=== PATIENT | male | born 1965 | race Caucasian/White ===

== ENCOUNTER 2016-11-29 17:23 | Emergency (ER) | payer MEDICARE, OTHER ==
[2016-11-29] MEDS ORDERED: SODIUM CHLORIDE 0.9% 1,000 ML IV STA ×2 (18:04)
[2016-11-29] MEDS ORDERED: IPRATROPIUM-ALBUTEROL 3 ML NEB INHALATION STA (18:04)
[2016-11-29] MEDS ORDERED: methylPREDNISolone SOD SUCCI 125 MG/2 ML VIAL IV STA (18:04)
--- NOTE | 2016-11-29 18:11 | ED ---
SOB HPI - General Chief Complaint: Shortness of Breath Stated Complaint: JAHAIRA Time Seen by Provider: 11/29/16 17:51 Source: patient, RN notes reviewed, old records reviewed Mode of arrival: ambulatory Limitations: no limitations - History of Present Illness Initial Comments: Patient's 51-year-old male chief complaint of shortness of breath for the past 48 hours. Patient reports that he is a heavy smoker and was recently battling a cold. Patient reports that his clothes settled into his chest and now he feels that he is unable take a deep breath whenever he is laying down. Patient states that he has had a productive cough. Patient reports he has a past medical history of borderline diabetes, he has not seen a primary care provider in over 8 years. Patient reports that over the past few months he became very depressed and started to smoke heavily. He also reports that he has chronic arthritic pain which seems to be worse over the past few days. Patient denies any diaphoresis, nausea, vomiting, abdominal pain, malaise. Patient reports that he has had polyuria. Patient denies any recent fever, chills, back pain, abdominal pain, nausea vomiting, numbness or tingling, dysuria or hematuria, constipation or diarrhea, headaches or visual changes, or any other current symptoms - Related Data Home Medications Medication Instructions Recorded Confirmed Cyanocobalamin [Vitamin B-12] 1,000 mcg PO DAILY 11/29/16 11/29/16 Garlic 1 tab PO DAILY 11/29/16 11/29/16 Ibuprofen [Motrin] 200 - 400 mg PO Q6HR PRN 11/29/16 11/29/16 Multivitamins, Thera [Multivitamin] 1 tab PO DAILY 11/29/16 11/29/16 Previous Rx's Medication Instructions Recorded Albuterol Inhaler [Ventolin Hfa 1 - 2 puff INHALATION Q6HR PRN #1 11/29/16 Inhaler] inhaler predniSONE 50 mg PO DAILY #5 tab 11/29/16 Allergies Allergy/AdvReac Type Severity Reaction Status Date / Time venom-honey bee Allergy Unknown Verified 11/29/16 18:53 [bee venom (honey bee)] Review of Systems ROS Statement: Those systems with pertinent positive or pertinent negative responses have been documented in the HPI. ROS Other: All systems not noted in ROS Statement are negative. Past Medical History Past Medical History: No Reported History History of Any Multi-Drug Resistant Organisms: None Reported Past Surgical History: Orthopedic Surgery Additional Past Surgical History / Comment(s): rt ankle Past Psychological History: Depression Smoking Status: Current every day smoker Past Alcohol Use History: Daily General Exam - General Exam Comments Initial Comments: Patient is a 51-year-old male. Patient does appear to be somewhat anxious. Patient does not appear to be in any acute respiratory distress at this time. Patient has no fever and pulse ox is 96% on room air. Limitations: no limitations General appearance: alert, in no apparent distress Head exam: Present: atraumatic, normocephalic, normal inspection Eye exam: Present: normal appearance, PERRL, EOMI. Absent: scleral icterus, conjunctival injection, periorbital swelling ENT exam: Present: normal exam, normal oropharynx, mucous membranes moist, TM's normal bilaterally Neck exam: Present: normal inspection. Absent: tenderness, meningismus, lymphadenopathy Respiratory exam: Present: normal lung sounds bilaterally, wheezes (bilateral wheezing), decreased breath sounds (left sided ). Absent: respiratory distress , rales, rhonchi, stridor, chest wall tenderness Cardiovascular Exam: Present: regular rate, normal rhythm, normal heart sounds. Absent: systolic murmur, diastolic murmur, rubs, gallop, clicks GI/Abdominal exam: Present: soft, normal bowel sounds. Absent: distended, tenderness, guarding, rebound, rigid Extremities exam: Present: normal inspection, full ROM, normal capillary refill. Absent: tenderness, pedal edema, joint swelling, calf tenderness Back exam: Present: normal inspection, full ROM Neurological exam: Present: alert, oriented X3, CN II-XII intact Psychiatric exam: Present: normal affect, normal mood Skin exam: Present: warm, dry, intact, normal color. Absent: rash Course Vital Signs 11/29/16 11/29/16 11/29/16 17:36 18:37 18:40 Temperature 98.4 F Pulse Rate 86 80 80 Respiratory 20 18 Rate Blood Pressure 110/71 130/73 O2 Sat by Pulse 96 99 Oximetry 11/29/16 18:43 Temperature Pulse Rate 84 Respiratory Rate Blood Pressure O2 Sat by Pulse Oximetry Medical Decision Making - Medical Decision Making Patient's 51-year-old male chief complaint of shortness of breath for the past 48 hours. Patient reports that he is a heavy smoker and was recently battling a cold. Patient reports that his clothes settled into his chest and now he feels that he is unable take a deep breath whenever he is laying down. Patient states that he has had a productive cough. Patient reports he has a past medical history of borderline diabetes, he has not seen a primary care provider in over 8 years. Patient reports that over the past few months he became very depressed and started to smoke heavily. X-ray shows no acute cardio vomiting process. There is evidence of previous left rib fractures. Patient reports this happened over 2 years ago he fell in a barrel. Patient was advised that he could be admitted for COPD exacerbation however patient refused. Patient states he would like to manage this at home and promises to follow-up with her primary care provider. Patient will be given referrals to primary care providers and discharged with a prescription of prednisone, and albuterol inhaler. Patient advised that is very important to stop smoking. All labs are reviewed and are essentially negative at this time. Patient's cardiac enzymes and EKG was also reviewed to be normal. Patient understands the importance of following up with primary care and return parameters were discussed any increased shortness of breath.. - Lab Data Result diagrams: 11/29/16 18:30 11/29/16 18:30 Lab Results 11/29/16 11/29/16 11/29/16 Range/Units 18:30 18:30 18:30 WBC 5.8 (3.8-10.6) k/uL RBC 5.17 (4.30-5.90) m/uL Hgb 16.6 (13.0-17.5) gm/dL Hct 49.7 (39.0-53.0) % MCV 96.2 (80.0-100.0) fL MCH 32.1 (25.0-35.0) pg MCHC 33.4 (31.0-37.0) g/dL RDW 13.8 (11.5-15.5) % Plt Count 146 L (150-450) k/uL Neutrophils % 56 % Lymphocytes % 29 % Monocytes % 8 % Eosinophils % 2 % Basophils % 1 % Neutrophils # 3.2 (1.3-7.7) k/uL Lymphocytes # 1.7 (1.0-4.8) k/uL Monocytes # 0.5 (0-1.0) k/uL Eosinophils # 0.1 (0-0.7) k/uL Basophils # 0.1 (0-0.2) k/uL PT (9.0-12.0) sec INR (<1.1) APTT (22.0-30.0) sec Sodium 141 (137-145) mmol/L Potassium 4.5 (3.5-5.1) mmol/L Chloride 107 (98-107) mmol/L Carbon Dioxide 23 (22-30) mmol/L Anion Gap 11 mmol/L BUN 24 H (9-20) mg/dL Creatinine 0.76 (0.66-1.25) mg/dL Est GFR (MDRD) Af Amer >60 (>60 ml/min/1.73 sqM) Est GFR (MDRD) Non-Af >60 (>60 ml/min/1.73 sqM) Glucose 95 (74-99) mg/dL Plasma Lactic Acid Anthony (0.7-2.0) mmol/L Calcium 9.3 (8.4-10.2) mg/dL Magnesium 1.9 (1.6-2.3) mg/dL Total Bilirubin 0.6 (0.2-1.3) mg/dL AST 35 (17-59) U/L ALT 50 (21-72) U/L Alkaline Phosphatase 93 (38-126) U/L Total Creatine Kinase 71 (55-170) U/L CK-MB (CK-2) 0.8 (0.0-2.4) ng/mL CK-MB (CK-2) Rel Index 1.1 Troponin I <0.012 (0.000-0.034) ng/mL NT-Pro-B Natriuret Pep pg/mL Total Protein 6.8 (6.3-8.2) g/dL Albumin 4.0 (3.5-5.0) g/dL Urine Color Urine Appearance (Clear) Urine pH (5.0-8.0) Ur Specific [place] (1.001-1.035) Urine Protein (Negative) Urine Glucose (UA) (Negative) Urine Ketones (Negative) Urine Blood (Negative) Urine Nitrate (Negative) Urine Bilirubin (Negative) Urine Urobilinogen (<2.0) mg/dL Ur Leukocyte Esterase (Negative) 11/29/16 11/29/16 11/29/16 Range/Units 18:30 18:30 18:30 WBC (3.8-10.6) k/uL RBC (4.30-5.90) m/uL Hgb (13.0-17.5) gm/dL Hct (39.0-53.0) % MCV (80.0-100.0) fL MCH (25.0-35.0) pg MCHC (31.0-37.0) g/dL RDW (11.5-15.5) % Plt Count (150-450) k/uL Neutrophils % % Lymphocytes % % Monocytes % % Eosinophils % % Basophils % % Neutrophils # (1.3-7.7) k/uL Lymphocytes # (1.0-4.8) k/uL Monocytes # (0-1.0) k/uL Eosinophils # (0-0.7) k/uL Basophils # (0-0.2) k/uL PT 10.5 (9.0-12.0) sec INR 1.0 (<1.1) APTT 28.6 (22.0-30.0) sec Sodium (137-145) mmol/L Potassium (3.5-5.1) mmol/L Chloride (98-107) mmol/L Carbon Dioxide (22-30) mmol/L Anion Gap mmol/L BUN (9-20) mg/dL Creatinine (0.66-1.25) mg/dL Est GFR (MDRD) Af Amer (>60 ml/min/1.73 sqM) Est GFR (MDRD) Non-Af (>60 ml/min/1.73 sqM) Glucose (74-99) mg/dL Plasma Lactic Acid Anthony 0.7 (0.7-2.0) mmol/L Calcium (8.4-10.2) mg/dL Magnesium (1.6-2.3) mg/dL Total Bilirubin (0.2-1.3) mg/dL AST (17-59) U/L ALT (21-72) U/L Alkaline Phosphatase (38-126) U/L Total Creatine Kinase (55-170) U/L CK-MB (CK-2) (0.0-2.4) ng/mL CK-MB (CK-2) Rel Index Troponin I (0.000-0.034) ng/mL NT-Pro-B Natriuret Pep 37 pg/mL Total Protein (6.3-8.2) g/dL Albumin (3.5-5.0) g/dL Urine Color Urine Appearance (Clear) Urine pH (5.0-8.0) Ur Specific [place] (1.001-1.035) Urine Protein (Negative) Urine Glucose (UA) (Negative) Urine Ketones (Negative) Urine Blood (Negative) Urine Nitrate (Negative) Urine Bilirubin (Negative) Urine Urobilinogen (<2.0) mg/dL Ur Leukocyte Esterase (Negative) 11/29/16 Range/Units 19:50 WBC (3.8-10.6) k/uL RBC (4.30-5.90) m/uL Hgb (13.0-17.5) gm/dL Hct (39.0-53.0) % MCV (80.0-100.0) fL MCH (25.0-35.0) pg MCHC (31.0-37.0) g/dL RDW (11.5-15.5) % Plt Count (150-450) k/uL Neutrophils % % Lymphocytes % % Monocytes % % Eosinophils % % Basophils % % Neutrophils # (1.3-7.7) k/uL Lymphocytes # (1.0-4.8) k/uL Monocytes # (0-1.0) k/uL Eosinophils # (0-0.7) k/uL Basophils # (0-0.2) k/uL PT (9.0-12.0) sec INR (<1.1) APTT (22.0-30.0) sec Sodium (137-145) mmol/L Potassium (3.5-5.1) mmol/L Chloride (98-107) mmol/L Carbon Dioxide (22-30) mmol/L Anion Gap mmol/L BUN (9-20) mg/dL Creatinine (0.66-1.25) mg/dL Est GFR (MDRD) Af Amer (>60 ml/min/1.73 sqM) Est GFR (MDRD) Non-Af (>60 ml/min/1.73 sqM) Glucose (74-99) mg/dL Plasma Lactic Acid Anthony (0.7-2.0) mmol/L Calcium (8.4-10.2) mg/dL Magnesium (1.6-2.3) mg/dL Total Bilirubin (0.2-1.3) mg/dL AST (17-59) U/L ALT (21-72) U/L Alkaline Phosphatase (38-126) U/L Total Creatine Kinase (55-170) U/L CK-MB (CK-2) (0.0-2.4) ng/mL CK-MB (CK-2) Rel Index Troponin I (0.000-0.034) ng/mL NT-Pro-B Natriuret Pep pg/mL Total Protein (6.3-8.2) g/dL Albumin (3.5-5.0) g/dL Urine Color Yellow Urine Appearance Clear (Clear) Urine pH 5.0 (5.0-8.0) Ur Specific [place] 1.020 (1.001-1.035) Urine Protein Trace H (Negative) Urine Glucose (UA) Negative (Negative) Urine Ketones 1+ H (Negative) Urine Blood Negative (Negative) Urine Nitrate Negative (Negative) Urine Bilirubin Negative (Negative) Urine Urobilinogen <2.0 (<2.0) mg/dL Ur Leukocyte Esterase Negative (Negative) 11/29/16 18:29 EKG was performed at 1825. EKG shows normal sinus rhythm. Ventricular rate of 79 bpm. NH interval 144 ms. QRS duration 74 ms. QT/QTC is 354/45 ms. No evidence of ST elevation or T -wave inversion. - Radiology Data Radiology results: report reviewed No active cardiopulmonary disease. Old left-sided multiple rib fracture. There is evidence of normal heart. Slight anterior wedging of 2 or 3 midthoracic vertebra. Disposition Clinical Impression: COPD with exacerbation Disposition: HOME SELF-CARE Condition: Good Instructions: Chronic Bronchitis (ED) Additional Instructions: Mata strongly advised to discontinue smoking. Patient advised to take the steroids for the next 5 days and use the albuterol inhaler as needed for shortness of breath and coughing. Patient must follow-up with her primary care provider in regards to smoking sensation and maintenance treatment for her COPD. Return to the emergency department at once for any alarming signs or symptoms. Prescriptions: Albuterol Inhaler [Ventolin Hfa Inhaler] 1 - 2 puff INHALATION Q6HR PRN #1 inhaler PRN Reason: Shortness Of Breath Or Wheezing predniSONE 50 mg PO DAILY #5 tab Referrals: Katherine Vega MD [REFERRING] - 1-2 days Dimitrios Chavez DO [STAFF PHYSICIAN] - 1-2 days Time of Disposition: 20:22
[2016-11-29 18:40] LABS: Basophils # (A) 0.1 k/uL (0-0.2); Basophils % (A) 1 %; CH 32.6; Eosinophils # (A) 0.1 k/uL (0-0.7); Eosinophils % (A) 2 %; HCT 49.7 % (39.0-53.0); HDW 2.39; HGB 16.6 gm/dL (13.0-17.5); Luc # (Auto) 0.26; Luc % (Auto) 5; Lymphocytes # (A) 1.7 k/uL (1.0-4.8); Lymphocytes % (A) 29 %; MCH 32.1 pg (25.0-35.0); MCHC 33.4 g/dL (31.0-37.0); MCV 96.2 fL (80.0-100.0); Monocytes # (A) 0.5 k/uL (0-1.0); Monocytes % (A) 8 %; Neutrophils # (A) 3.2 k/uL (1.3-7.7); Neutrophils % (A) 56 %; RBC 5.17 m/uL (4.30-5.90); RDW 13.8 % (11.5-15.5); WBC 5.8 k/uL (3.8-10.6); WBC (Perox) 5.35
[2016-11-29 18:41] VITALS: RESP 18
[2016-11-29 18:50] LABS: Partial Thromboplastin Time 28.6 sec (22.0-30.0); Prothrombin Time 10.5 sec (9.0-12.0)
[2016-11-29 18:51] LABS: ALT 50 U/L (21-72); AST 35 U/L (17-59); Alkaline Phosphatase 93 U/L (38-126); Anion Gap 11 mmol/L; Blood Urea Nitrogen 24 mg/dL (9-20); Calcium 9.3 mg/dL (8.4-10.2); Carbon Dioxide 23 mmol/L (22-30); Chloride 107 mmol/L (98-107); Glucose 95 mg/dL (74-99); Magnesium 1.9 mg/dL (1.6-2.3); Non-African American GFR(MDRD) >60 (>60 ml/min/1.73 sqM); Potassium 4.5 mmol/L (3.5-5.1); Sodium 141 mmol/L (137-145); Total Bilirubin 0.6 mg/dL (0.2-1.3); Total Protein 6.8 g/dL (6.3-8.2)
[2016-11-29 19:09] LABS: Creatine Kinase 71 U/L (55-170)
--- NOTE | 2016-11-29 19:17 | XR ---
EXAMINATION TYPE: XR chest 2V DATE OF EXAM: 11/29/2016 7:01 PM COMPARISON: 12/06/2012 HISTORY: Short of breath TECHNIQUE: Frontal and lateral views of the chest are obtained. FINDINGS: Heart and mediastinum are normal. Lungs are clear. Old left-sided healed rib fractures are noted. There are chest leads. There are no hilar masses. There is slight anterior wedging of 2 or 3 mid thoracic vertebra. IMPRESSION: No active cardiopulmonary disease. Old left-sided multiple rib fractures. Normal heart.
[2016-11-29 19:23] LABS: Creatine Kinase MB 0.8 ng/mL (0.0-2.4); Troponin I <0.012 ng/mL (0.000-0.034)
[2016-11-29 19:59] LABS: Appearance,Urine Clear (Clear); Bilirubin,Urine Negative (Negative); Glucose,Urine (UA) Negative (Negative); Ketones,Urine 1+ (Negative); Leukocyte Esterase,Urine Negative (Negative); Nitrite,Urine Negative (Negative); Protein,Urine Trace (Negative); UA Billing (MACRO vs. MICRO) CHEM; Urobilinogen,Urine <2.0 mg/dL (<2.0)
[2016-11-29 20:38] VITALS: BP 122/76; PULSE 95; TEMP 97
== END 2016-11-29 20:38 | disposition home or self-care (01) ==
LOC: EC 17:23
DX: J44.1 Chronic obstructive pulmonary disease with (acute) exacerbation (principal); F17.200 Nicotine dependence, unspecified, uncomplicated
CPT/HCPCS: 36415; 94640; 93005; 83880; 80053; 82550; 82553; 83605; 83735; 84484; 85025; 85610; 85730; 81003; 87040; 71020; 96374; 96361 ×2; 99285; J2930

== ENCOUNTER 2017-05-03 10:59 | Emergency (ER) | payer MEDICARE, OTHER ==
[2017-05-03] MEDS ORDERED: ESOMEPRAZOLE 20 MG in SODIUM CHLORIDE 0.9% 50 ML IVPB STA (11:31)
[2017-05-03] MEDS ORDERED: SODIUM CHLORIDE 0.9% 1,000 ML IV STA (11:31)
--- NOTE | 2017-05-03 12:07 | ED ---
General Adult HPI - General Chief complaint: GI Bleed Stated complaint: rectal bleeding Time Seen by Provider: 05/03/17 11:18 Source: patient, RN notes reviewed Mode of arrival: ambulatory Limitations: no limitations - History of Present Illness Initial comments: Patient 52-year-old male who presents emergency room today with chief complaint of rectal bleeding. Patient does admit that his had symptoms on and off over the last 6 years. He states had diarrhea since he was diagnosed with a "worms" infection. Patient states that he took the medication he just never followed up with anybody. He states continue to have diarrhea. He states that time she' s seeing blood in his stool. He states that last night he had 3-4 episodes of dark bowel movements. He states he at time has had some left-sided abdominal discomfort. denies any other complaints. Patient denies any recent fever, chills, shortness of breath, chest pain, back pain, nausea or vomiting, numbness or tingling, dysuria or hematuria, constipation, headaches or visual changes, or any other complaints. - Related Data Home Medications Medication Instructions Recorded Confirmed Ibuprofen [Motrin] 200 - 400 mg PO Q6HR PRN 11/29/16 05/03/17 Previous Rx's Medication Instructions Recorded Omeprazole 20 mg PO DAILY #20 capsule. 05/03/17 Allergies Allergy/AdvReac Type Severity Reaction Status Date / Time venom-honey bee Allergy Unknown Verified 05/03/17 11:11 [bee venom (honey bee)] Review of Systems ROS Statement: Those systems with pertinent positive or pertinent negative responses have been documented in the HPI. ROS Other: All systems not noted in ROS Statement are negative. Past Medical History Past Medical History: No Reported History History of Any Multi-Drug Resistant Organisms: None Reported Past Surgical History: Orthopedic Surgery Additional Past Surgical History / Comment(s): rt ankle Past Psychological History: Depression Smoking Status: Current every day smoker Past Alcohol Use History: Occasional Past Drug Use History: Marijuana General Exam - General Exam Comments Initial Comments: General: The patient is awake and alert, in no distress, and does not appear acutely ill. Eye: Pupils are equal, round and reactive to light, extra-ocular movements are intact. No nystagmus. There is normal conjunctiva bilaterally. No signs of icterus. Ears, nose, mouth and throat: There are moist mucous membranes and no oral lesions. Neck: The neck is supple, there is no tenderness or JVD. Cardiovascular: There is a regular rate and rhythm. No murmur, rub or gallop is appreciated. Respiratory: Lungs are clear to auscultation, respirations are non-labored, breath sounds are equal. No wheezes, stridor, rales, or rhonchi. Gastrointestinal: Soft, non-distended, non-tender abdomen without masses or organomegaly noted. There is no rebound or guarding present. No CVA tenderness. Bowel sounds are unremarkable. Musculoskeletal: Normal ROM, no tenderness. Strength 5/5. Sensation intact. Pulses equal bilaterally 2+. Neurological: A&O x 3. CN II-XII intact, There are no obvious motor or sensory deficits. Coordination appears grossly intact. Speech is normal. Skin: Skin is warm and dry and no rashes or lesions are noted. Psychiatric: Cooperative, appropriate mood & affect, normal judgment. : [employer] Rocío present for exam. Patient has normal external exam no sign of hemorrhoids. Normal rectal tone. No bright red blood per rectum. Limitations: no limitations Course Vital Signs 05/03/17 11:02 Temperature 97.0 F L Pulse Rate 84 Respiratory 18 Rate Blood Pressure 109/74 O2 Sat by Pulse 97 Oximetry Medical Decision Making - Medical Decision Making Patient labs been reviewed. It is guaiac-positive. Remaining labs are unremarkable. Hemoglobin 16.8. Patient's resting comfortably here in the emergency room. Denies any lightheadedness or dizziness. Abdomen soft nontender. Case discussed in detail with attending physician Dr. Shannon. Patient given Nexium here in the emergency room. He'll be discharged home with continued on omeprazole. Advised follow-up with surgeon tomorrow. Advised return to emergency room symptoms increase worsen or for any other concerns. - Lab Data Result diagrams: 05/03/17 11:44 05/03/17 11:44 Lab Results 05/03/17 05/03/17 05/03/17 Range/Units 11:44 11:44 11:44 WBC 9.3 (3.8-10.6) k/uL RBC 5.28 (4.30-5.90) m/uL Hgb 16.8 (13.0-17.5) gm/dL Hct 51.5 (39.0-53.0) % MCV 97.4 (80.0-100.0) fL MCH 31.9 (25.0-35.0) pg MCHC 32.7 (31.0-37.0) g/dL RDW 14.3 (11.5-15.5) % Plt Count 271 (150-450) k/uL Neutrophils % 55 % Lymphocytes % 35 % Monocytes % 5 % Eosinophils % 2 % Basophils % 1 % Neutrophils # 5.1 (1.3-7.7) k/uL Lymphocytes # 3.3 (1.0-4.8) k/uL Monocytes # 0.4 (0-1.0) k/uL Eosinophils # 0.1 (0-0.7) k/uL Basophils # 0.1 (0-0.2) k/uL PT (9.0-12.0) sec INR (<1.2) APTT (22.0-30.0) sec Sodium 139 (137-145) mmol/L Potassium 4.5 (3.5-5.1) mmol/L Chloride 108 H (98-107) mmol/L Carbon Dioxide 20 L (22-30) mmol/L Anion Gap 11 mmol/L BUN 21 H (9-20) mg/dL Creatinine 0.83 (0.66-1.25) mg/dL Est GFR (MDRD) Af Amer >60 (>60 ml/min/1.73 sqM) Est GFR (MDRD) Non-Af >60 (>60 ml/min/1.73 sqM) Glucose 93 (74-99) mg/dL Calcium 9.5 (8.4-10.2) mg/dL Total Bilirubin 0.6 (0.2-1.3) mg/dL AST 27 (17-59) U/L ALT 45 (21-72) U/L Alkaline Phosphatase 79 (38-126) U/L Total Creatine Kinase 73 (55-170) U/L CK-MB (CK-2) 1.0 (0.0-2.4) ng/mL CK-MB (CK-2) Rel Index 1.4 Total Protein 6.7 (6.3-8.2) g/dL Albumin 4.2 (3.5-5.0) g/dL Stool Occult Blood (Negative) 08/01/17 08/01/17 Range/Units 11:44 12:00 WBC (3.8-10.6) k/uL RBC (4.30-5.90) m/uL Hgb (13.0-17.5) gm/dL Hct (39.0-53.0) % MCV (80.0-100.0) fL MCH (25.0-35.0) pg MCHC (31.0-37.0) g/dL RDW (11.5-15.5) % Plt Count (150-450) k/uL Neutrophils % % Lymphocytes % % Monocytes % % Eosinophils % % Basophils % % Neutrophils # (1.3-7.7) k/uL Lymphocytes # (1.0-4.8) k/uL Monocytes # (0-1.0) k/uL Eosinophils # (0-0.7) k/uL Basophils # (0-0.2) k/uL PT 11.1 (9.0-12.0) sec INR 1.1 (<1.2) APTT 25.8 (22.0-30.0) sec Sodium (137-145) mmol/L Potassium (3.5-5.1) mmol/L Chloride (98-107) mmol/L Carbon Dioxide (22-30) mmol/L Anion Gap mmol/L BUN (9-20) mg/dL Creatinine (0.66-1.25) mg/dL Est GFR (MDRD) Af Amer (>60 ml/min/1.73 sqM) Est GFR (MDRD) Non-Af (>60 ml/min/1.73 sqM) Glucose (74-99) mg/dL Calcium (8.4-10.2) mg/dL Total Bilirubin (0.2-1.3) mg/dL AST (17-59) U/L ALT (21-72) U/L Alkaline Phosphatase (38-126) U/L Total Creatine Kinase (55-170) U/L CK-MB (CK-2) (0.0-2.4) ng/mL CK-MB (CK-2) Rel Index Total Protein (6.3-8.2) g/dL Albumin (3.5-5.0) g/dL Stool Occult Blood Positive (Negative) Disposition Clinical Impression: Melena Disposition: HOME SELF-CARE Condition: Good Instructions: Gastrointestinal Bleeding (ED) Additional Instructions: Please use medication as prescribed. Please follow-up with general surgeon over the next 1-2 days. Please return to emergency room if any symptoms increase or worsen or for any other concerns as discussed. Prescriptions: Omeprazole 20 mg PO DAILY #20 capsule. Referrals: None,Stated [Primary Care Provider] - 1-2 days Monique Terrazas DO [Doctor of Osteopathic Medicine] - 1-2 days Time of Disposition: 13:21
[2017-05-03 12:10] LABS: Basophils # (A) 0.1 k/uL (0-0.2); Basophils % (A) 1 %; CH 32.5; CHCM 33.6; Eosinophils # (A) 0.1 k/uL (0-0.7); Eosinophils % (A) 2 %; HCT 51.5 % (39.0-53.0); HGB 16.8 gm/dL (13.0-17.5); Luc # (Auto) 0.23; Luc % (Auto) 3; Lymphocytes # (A) 3.3 k/uL (1.0-4.8); Lymphocytes % (A) 35 %; MCH 31.9 pg (25.0-35.0); MCHC 32.7 g/dL (31.0-37.0); MCV 97.4 fL (80.0-100.0); Mean Platelet Volume 7.7; Monocytes # (A) 0.4 k/uL (0-1.0); Monocytes % (A) 5 %; Neutrophils # (A) 5.1 k/uL (1.3-7.7); Neutrophils % (A) 55 %; RBC 5.28 m/uL (4.30-5.90); RDW 14.3 % (11.5-15.5); WBC 9.3 k/uL (3.8-10.6); WBC (Perox) 9.19
[2017-05-03 12:18] LABS: ALT 45 U/L (21-72); AST 27 U/L (17-59); Alkaline Phosphatase 79 U/L (38-126); Anion Gap 11 mmol/L; Blood Urea Nitrogen 21 mg/dL (9-20); Calcium 9.5 mg/dL (8.4-10.2); Carbon Dioxide 20 mmol/L (22-30); Chloride 108 mmol/L (98-107); Glucose 93 mg/dL (74-99); Non-African American GFR(MDRD) >60 (>60 ml/min/1.73 sqM); Potassium 4.5 mmol/L (3.5-5.1); Sodium 139 mmol/L (137-145); Total Bilirubin 0.6 mg/dL (0.2-1.3); Total Protein 6.7 g/dL (6.3-8.2)
[2017-05-03 12:35] LABS: INR 1.1 (<1.2); Partial Thromboplastin Time 25.8 sec (22.0-30.0); Prothrombin Time 11.1 sec (9.0-12.0)
[2017-05-03 13:51] VITALS: BP 129/83; PULSE 70; RESP 16; TEMP 97.8
== END 2017-05-03 13:51 | disposition home or self-care (01) ==
LOC: EC 10:59
DX: K92.1 Melena (principal); Z91.030 Bee allergy status; F17.200 Nicotine dependence, unspecified, uncomplicated
CPT/HCPCS: 36415; 80053; 82272; 82550; 82553; 85025; 85610; 85730; 96365; 99284

== ENCOUNTER 2020-03-06 20:52 | Inpatient (IN) | payer MEDICARE, OTHER ==
[2020-03-06] MEDS ORDERED: SODIUM CHLORIDE 0.9% 1,000 ML IV STA (20:55)
[2020-03-06] MEDS ORDERED: ONDANSETRON 4 MG/2 ML VIAL IVP STA (20:57)
[2020-03-06] MEDS ORDERED: HYDROmorphone 1 MG/ML 1 ML SYRINGE IVP STA (20:57)
[2020-03-06] MEDS ORDERED: HYDROmorphone 0.5 MG/0.5 ML SYRINGE IVP STA (21:00)
[2020-03-06] MEDS ORDERED: HYDROmorphone 0.5 MG/0.5 ML SYRINGE IVP PRN (21:01)
[2020-03-06] MEDS ORDERED: ONDANSETRON 4 MG/2 ML VIAL IVP PRN (21:01)
[2020-03-06] MEDS ORDERED: NALOXONE 0.4 MG/ML 1 ML VIAL IV PRN (21:01)
--- NOTE | 2020-03-06 21:05 | ED ---
Chest Pain HPI - General Chief Complaint: Chest Pain Stated Complaint: STEMI Source: patient, EMS Mode of arrival: EMS Limitations: no limitations - History of Present Illness Initial Comments: Jaylan a 55-year-old male smoker who does not follow with a primary care physician. Patient called 911 today for evaluation of severe chest pain and shortness of breath. EMS arrived on scene to find the patient with severe chest pain EKG showed an inferior wall OK patient was treated with aspirin and nitro and transported the hospital immediately. Patient has no known cardiac history though he does not follow with primary care physician he takes no meds daily. MD Complaint: chest pain - Related Data Home Medications Medication Instructions Recorded Confirmed Ibuprofen [Motrin] 200 - 400 mg PO Q6HR PRN 11/29/16 05/03/17 Previous Rx's Medication Instructions Recorded Omeprazole 20 mg PO DAILY #20 capsule. 05/03/17 Allergies Allergy/AdvReac Type Severity Reaction Status Date / Time venom-honey bee Allergy Unknown Verified 05/03/17 11:11 [bee venom (honey bee)] Review of Systems ROS Statement: Those systems with pertinent positive or pertinent negative responses have been documented in the HPI. ROS Other: All systems not noted in ROS Statement are negative. EKG Findings - EKG Comments: EKG Findings:: EKG was obtained at 2055,, rate is in the 60s rhythm is sinus normal axis, normal intervals, UT 138, QRS 88, QTC is 427. There are ST elevations in 23 and aVF with reciprocal changes consistent with an acute inferior wall OK Past Medical History Past Medical History: No Reported History History of Any Multi-Drug Resistant Organisms: None Reported Past Surgical History: Orthopedic Surgery Additional Past Surgical History / Comment(s): rt ankle Past Psychological History: Depression Smoking Status: Current every day smoker Past Alcohol Use History: Occasional Past Drug Use History: Marijuana General Exam - General Exam Comments Initial Comments: Physical Exam GENERAL: Gentleman who appears quite uncomfortable, grayish skin discoloration HENT: Normocephalic, Atraumatic. EYES: PERRL, EOMI PULMONARY: Unlabored respirations. No audible rales rhonchi or wheezing was noted. CARDIOVASCULAR: There is a regular rate and rhythm without any murmurs gallops or rubs. A maneuver warm and well perfused with palpable radial and DP pulses ABDOMEN: Soft and nontender with normal bowel sounds. No pulsatile mass SKIN: Skin is clear with no lesions or rashes and otherwise unremarkable. : Deferred NEUROLOGIC: Patient is alert and oriented x3. Moving all extremities spontaneously MUSCULOSKELETAL: Normal extremities with adequate strength and full range of motion. No lower extremity swelling or edema. No calf tenderness. PSYCHIATRIC: Normal psychiatric evaluation. Limitations: no limitations Course Vital Signs 03/06/20 20:53 Temperature 97.8 F Pulse Rate 67 Respiratory 18 Rate Blood Pressure 110/84 O2 Sat by Pulse 98 Oximetry Chest Pain MDM - [facility] EKG was evaluated prior to arrival and cardiology was paged Repeat EKG was obtained upon arrival and STEMI was activated Patient received aspirin and nitro prior to arrival Heparin Dilaudid and Zofran were ordered Team at Bedside to Transfer Patient to the Cardiac Progressive Care Nurse with Dr. Rao, of [facility] was notified of admission Disposition Clinical Impression: STEMI (ST elevation myocardial infarction) Disposition: ADMITTED IP TO THIS HOSP Condition: Serious Is patient prescribed a controlled substance at d/c from ED?: No Referrals: None,Stated [Primary Care Provider] - 1-2 days
[2020-03-06] MEDS ORDERED: HEPARIN SODIUM,PORCINE 5,000 UNIT/ML 1 ML VIAL IV PRN (21:06)
[2020-03-06] MEDS ORDERED: HEPARIN SODIUM,PORCINE 5,000 UNIT/ML 1 ML VIAL IV ONE (21:06)
--- NOTE | 2020-03-06 21:08 | XR ---
EXAMINATION: XR chest 1V - upright portable DATE AND TIME: 03/06/2020 9:01 PM CLINICAL INDICATION: PHH; chest pain TECHNIQUE: Departmental protocol COMPARISON: 11/22/1716 FINDINGS: Senescent radiographic changes are redemonstrated. The lungs demonstrate a reticular pattern of increased density silhouetting the pulmonary vasculature to a mild/moderate degree, consistent with a radiographic differential diagnosis of mild interstitia l phase pulmonary edema versus chronic interstitial lung change. There is no focal lung consolidation . There is no evidence of pneumothorax, and no pleural effusion. The cardiac silhouette appears mildly enlarged. The remainder of the mediastinal silhouette is unremarkable. The skeletal structures and soft tissues are negative for acute findings. IMPRESSION: Mild/moderate pulmonary interstitial pattern.
[2020-03-06 21:12] LABS: Basophils # (A) 0.1 k/uL (0-0.2); Basophils % (A) 1 %; Eosinophils # (A) 0.3 k/uL (0-0.7); Eosinophils % (A) 3 %; HCT 48.4 % (39.0-53.0); HGB 15.2 gm/dL (13.0-17.5); Lymphocytes # (A) 4.6 k/uL (1.0-4.8); Lymphocytes % (A) 35 %; MCH 30.8 pg (25.0-35.0); MCHC 31.5 g/dL (31.0-37.0); Mean Platelet Volume 7.5; Monocytes # (A) 0.7 k/uL (0-1.0); Monocytes % (A) 5 %; Neutrophils % (A) 54 %; Platelet Count 268 k/uL (150-450); RBC 4.94 m/uL (4.30-5.90); RDW 13.8 % (11.5-15.5)
[2020-03-06 21:25] LABS: Partial Thromboplastin Time 22.6 sec (22.0-30.0)
[2020-03-06 21:33] LABS: Albumin 4.1 g/dL (3.5-5.0); Calcium 9.6 mg/dL (8.4-10.2); Total Bilirubin 0.5 mg/dL (0.2-1.3); Total Protein 6.6 g/dL (6.3-8.2)
[2020-03-06 21:34] LABS: Potassium 4.3 mmol/L (3.5-5.1)
[2020-03-06] MEDS ORDERED: IV FLUID CONTINUATION 900 ML IV ONE (21:34)
[2020-03-06] MEDS ORDERED: LIDOCAINE 1% INJ 10MG/ML (20 ML MDV) SQ ONE (21:40)
[2020-03-06] MEDS ORDERED: MIDAZOLAM 2 MG/2 ML VIAL IVP ONE (21:40)
[2020-03-06] MEDS ORDERED: HEPARIN SOD,PORK IN 0.45% NACL 25,000 UNIT in 0.45% NACL 1 250ML.BAG IV SCH (21:45)
[2020-03-06] MEDS ORDERED: BIVALIRUDIN BOLUS 250 MG/50 ML IV ONE (21:46)
[2020-03-06] MEDS ORDERED: PRASUGREL 10 MG TAB ONE ×2 (21:47)
[2020-03-06] MEDS ORDERED: BIVALIRUDIN 250 MG in SODIUM CHLORIDE 0.9% 50 ML IV ONE (21:48)
[2020-03-06] MEDS ORDERED: PRASUGREL 10 MG TAB PO ONE (21:48)
[2020-03-06] MEDS ORDERED: IOPAMIDOL-370 125ML BTL INJ ONE (22:15)
[2020-03-06] MEDS ORDERED: ATROPINE SULFATE 0.1 MG/ML 10ML SYRINGE IV PRN (22:26)
[2020-03-06] MEDS ORDERED: NITROGLYCERIN SL TABS 0.4 MG TAB SUBLINGUAL PRN (22:26)
[2020-03-06] MEDS ORDERED: ZOLPIDEM 5 MG TAB PO PRN (22:26)
[2020-03-06] MEDS ORDERED: MAG HYDROX/AL HYDROX/SIMETH 30 ML CUP PO PRN (22:26)
[2020-03-06] MEDS ORDERED: RX INFO: IV CONTRAST WAS GIVEN 1 EACH MISC MISCELLANE PRN (22:26)
[2020-03-06] MEDS ORDERED: SODIUM CHLORIDE 0.9% 1,000 ML IV SCH (22:30)
--- NOTE | 2020-03-06 22:32 | P.CRDCN ---
History of Present Illness Consult date: 03/06/20 Chief complaint: Chest pain History of present illness: This is a 55-year-old gentleman with very significant history of smoking but no other comorbidities like diabetes or hypertension or dyslipidemia was brought to the emergency department by ambulance with acute inferior ST elevation myocardial infarction. The patient was in his usual state of health until earlier today when he started experiencing chest discomfort, in the mid of the chest, as a pressure, associated with shortness of breath as sweating. EMS arrived on scene and the patient was in severe pain and the EKG showed acute inferior ST patient myocardial infarction. Subsequently the patient was transported immediately to the emergency department and an emergent heart cat heterization was performed and revealed acute total occlusion of the RCA in the midportion with intermediate to severe disease involving the RCA distally as well as intermediate to severe disease involving the proximal LAD. I did perform successful aspiration thrombectomy along with successful stenting of the RCA with an excellent angiographic results as was GERMÁN-3 flow with the patient being chest pain-free by the end of the procedure as well as with resolving ST changes. The procedure was performed from the right groin. The patient is going to be admitted to the intensive care unit. I am going to start the patient on dual antiplatelet therapy as well as a statin. I'll withhold beta bl ocker as well as FEDERICA inhibitor at this point in view of the margin the low blood pressure. We will reinitiate these medication once her pressure is better. Past Medical History Past Medical History: No Reported History History of Any Multi-Drug Resistant Organisms: None Reported Past Surgical History: Orthopedic Surgery Additional Past Surgical History / Comment(s): rt ankle Past Psychological History: Depression Smoking Status: Current every day smoker Past Alcohol Use History: Occasional Past Drug Use History: Marijuana Medications and Allergies Home Medications Medication Instructions Recorded Confirmed Type Ibuprofen [Motrin] 200 - 400 mg PO Q6HR PRN 11/29/16 05/03/17 History Omeprazole 20 mg PO DAILY #20 capsule. 05/03/17 Rx Allergies Allergy/AdvReac Type Severity Reaction Status Date / Time venom-honey bee Allergy Unknown Verified 05/03/17 11:11 [bee venom (honey bee)] Physical Exam Vitals: Vital Signs Temp Pulse Resp BP Pulse Ox 03/06/20 21:42 68 18 119/78 98 03/06/20 21:15 65 17 110/79 99 03/06/20 20:53 97.8 F 67 18 110/84 98 Intake and Output 03/06/20 03/06/20 03/06/20 06:59 14:59 22:59 Intake Total 525 Balance 525 Intake: IV 525 Other: Weight 77.111 kg - Constitutional General appearance: no acute distress - Respiratory Respiratory: bilateral: CTA - Cardiovascular Rhythm: regular Results 03/06/20 21:00 03/06/20 21:00 Cardiac Enzymes 03/06/20 03/06/20 Range/Units 21:00 21:00 AST 30 (17-59) U/L Troponin I <0.012 (0.000-0.034) ng/mL Coagulation 03/06/20 Range/Units 21:00 PT 10.0 (9.0-12.0) sec APTT 22.6 (22.0-30.0) sec CBC 03/06/20 Range/Units 21:00 WBC 13.0 H (3.8-10.6) k/uL RBC 4.94 (4.30-5.90) m/uL Hgb 15.2 (13.0-17.5) gm/dL Hct 48.4 (39.0-53.0) % Plt Count 268 (150-450) k/uL Comprehensive Metabolic Panel 03/06/20 Range/Units 21:00 Sodium 142 (137-145) mmol/L Potassium 4.3 (3.5-5.1) mmol/L Chloride 111 H (98-107) mmol/L Carbon Dioxide 22 (22-30) mmol/L BUN 23 H (9-20) mg/dL Creatinine 1.12 (0.66-1.25) mg/dL Glucose 119 H (74-99) mg/dL Calcium 9.6 (8.4-10.2) mg/dL AST 30 (17-59) U/L ALT 21 (4-49) U/L Alkaline Phosphatase 71 (38-126) U/L Total Protein 6.6 (6.3-8.2) g/dL Albumin 4.1 (3.5-5.0) g/dL Current Medications Generic Name Dose Route Start Last Admin Trade Name Freq PRN Reason Stop Dose Admin Al Hydroxide/Mg Hydroxide 30 ml 03/06/20 22:26 Maalox PO Q4HR PRN Heartburn Aspirin 325 mg 03/07/20 09:00 Aspirin PO DAILY [facility] Atorvastatin Calcium 80 mg 03/07/20 21:00 Lipitor PO HS [facility] Atropine Sulfate 0.5 mg 03/06/20 22:26 Atropine IV ONCE PRN Symptomatic Bradycardia Hydromorphone HCl 0.5 mg 03/06/20 21:01 Dilaudid IVP Q3HR PRN Moderate Pain Sodium Chloride 1,000 mls @ 100 mls/hr 03/06/20 22:30 Saline 0.9% IV 03/07/20 04:31 .Q10H [facility] Miscellaneous Information 1 each 03/06/20 22:26 Rx Info: Iv Contrast Was Given MISCELLANE 03/08/20 22:26 DAILY PRN Per Protocol Naloxone HCl 0.2 mg 03/06/20 21:01 Narcan IV Q2M PRN Opioid Reversal Nitroglycerin 0.4 mg 03/06/20 22:26 Nitrostat SUBLINGUAL Q5M PRN Chest Pain Ondansetron HCl 4 mg 03/06/20 21:01 Zofran IVP Q8HR PRN Nausea And Vomiting Prasugrel 10 mg 03/07/20 22:27 Effient PO DAILY [facility] Zolpidem Tartrate 5 mg 03/06/20 22:26 Ambien PO HS PRN Insomnia Intake and Output 03/06/20 03/06/20 03/06/20 06:59 14:59 22:59 Intake Total 525 Balance 525 Intake: IV 525 Other: Weight 77.111 kg Patient Weight 03/07/20 06:59 Weight 77.111 kg 03/06/20 21:00 03/06/20 21:00 Assessment and Plan Assessment: Assessment #[address] patient myocardial infarction #2 status post PCI of the RCA #3 intermediate to severe disease involving the LAD #4 significant history of smoking Plan #1 continue dual antiplatelet therapy #2 continue high intensity statin #3 hold the beta huber and FEDERICA inhibitor in view of the margin the low blood pressure #4 IV fluid to support the blood pressure. #5 an echocardiogram was Doppler #6 monitor the groin Thank you for allowing us participate in his care and we'll continue following u p with the patient
[2020-03-06 22:44] LABS: Glucose,Whole Blood 101 mg/dL (75-99)
--- NOTE | 2020-03-07 00:09 | CC ---
CARDIAC CATHETERIZATION REPORT CARDIAC CATHETERIZATION AND PERCUTANEOUS CORONARY INTERVENTION: DATE OF SERVICE: March 06, 2020 PERFORMING PHYSICIAN: Allan Ledezma MD. PROCEDURE PERFORMED: 1. Selective right and left coronary angiogram. 2. Aspiration thrombectomy from the right coronary artery. 3. Successful stenting of the mid right coronary artery using 3.25 x 23 mm Xience ANA with excellent angiographic results and reduction of stenosis from 100% to 0%. 4. Left heart catheterization. INDICATION: This is a 55-year-old gentleman with significant history of smoking who was brought by ambulance from home with chest discomfort and EKG finding consistent with acute inferior ST-elevation myocardial infarction. Because of that, an emergent heart catheterization was advised. APPROACH: Right common femoral artery. COMPLICATION: None. LEVEL OF SEDATION: Moderate with sedation length of 40 minutes. Door to balloon is 59 minutes. 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 The right common femoral artery was cannulated using micropuncture technique, the micropuncture wire passed easily then I placed a 6-Polish sheath at the right common femoral artery. Subsequently, I did selective right and left coronary angiogram using JR3.5 and JL3.5 catheters. Subsequently I did intervene on the right coronary artery. Please see a separate paragraph for that. Then I did left heart catheterization using 6-Polish pigtail catheter. The procedure was completed without any complication. SELECTIVE CORONARY ANGIOGRAM: 1. The right coronary artery is a large caliber vessel and it is a dominant vessel. The RCA is 100% occluded in the midportion. 2. The left main is angiographically normal. It bifurcates into LCX and LAD. 3. The LCX is a medium caliber vessel. It is a nondominant vessel. The proximal LCX appeared to have mild disease only and gives rise into the first and second obtuse marginal branches both appeared to be small to medium caliber vessel with mild diffuse disease. The left circumflex continued after that as a small to medium caliber vessel in the AV groove. 4. The LAD: The proximal LAD has an ulcerated lesion appeared to be in the range of 60% to 70%. The mid and distal LAD appeared to be angiographically normal. The LAD gives rise into multiple diagonal branches. They appear to be angiographically normal. HEMODYNAMICS: The LVEDP was 18 to 20 mmHg without significant gradient across aortic valve. PCI OF THE RCA: Anticoagulation was initiated using Angiomax. Subsequently I did engage the right coronary artery using JR3.5 guide. I did wire the RCA and cross the acute total occlusion using an 0.014 run-through wire. Subsequently, I did aspiration thrombectomy from the right coronary artery with extraction of red thrombus. After that, I did balloon angioplasty using 3.0 x 15 mm balloon before I deployed 3.25 x 23 mm Xience ANA where the stent was positioned under fluoroscopy guidance and deployed under 18 atmospheres for 20 seconds. I post dilated the stent initially using 3.5 and then 3.75 mm NC balloon which was inflated under 20 atmospheres for 20 seconds. The following angiogram showed excellent angiographic results and the procedure was completed without any complication. Please note that there was a lesion distal to the stent appeared to be in the range of 60% to 70%. which I decided to treat medically. CONCLUSION: 1. Acute inferior ST-elevation myocardial infarction in this 55-year-old gentleman with significant history of smoking. 2. Acute total occlusion of the mid right coronary artery. I performed successful stenting of the mid RCA. The patient does have intermediate to severe lesion involving the distal RCA treated medically. 3. Normal left main coronary artery. 4. Mild disease involving the left circumflex coronary system. 5. Intermediate to severe disease involving the proximal left anterior descending artery. POSTPROCEDURE MANAGEMENT: 1. Dual anti-platelet therapy. 2. High intensity statin. 3. Hold any beta huber or FEDERICA inhibitor at this point in view of the marginally low blood pressure. 4. An echocardiogram with Doppler. 5. Standard groin care. 6. Follow up with the patient. MMODL / IJN: [id number] /
[2020-03-07 03:30] LABS: Basophils % (A) 0 %; Eosinophils % (A) 0 %; HCT 44.2 % (39.0-53.0); HGB 14.6 gm/dL (13.0-17.5); Lymphocytes # (A) 2.3 k/uL (1.0-4.8); Lymphocytes % (A) 19 %; MCH 32.6 pg (25.0-35.0); MCHC 33.1 g/dL (31.0-37.0); MCV 98.6 fL (80.0-100.0); Mean Platelet Volume 7.4; Monocytes # (A) 0.5 k/uL (0-1.0); Monocytes % (A) 4 %; Neutrophils % (A) 76 %; Platelet Count 207 k/uL (150-450); RBC 4.49 m/uL (4.30-5.90); RDW 13.8 % (11.5-15.5); WBC 11.9 k/uL (3.8-10.6)
[2020-03-07 03:42] LABS: African American GFR (CKD) >90 (>60 ml/min/1.73 sqM); Anion Gap 7 mmol/L; Blood Urea Nitrogen 21 mg/dL (9-20); Calcium 8.9 mg/dL (8.4-10.2); Carbon Dioxide 21 mmol/L (22-30); Chloride 110 mmol/L (98-107); Glucose 113 mg/dL (74-99); Non-African American GFR(CKD) >90 (>60 ml/min/1.73 sqM); Potassium 4.7 mmol/L (3.5-5.1); Sodium 138 mmol/L (137-145)
--- NOTE | 2020-03-07 07:37 | P.PN ---
Subjective Progress Note Date: 03/07/20 Principal diagnosis: Acute inferior ST elevation myocardial infarction This is a very pleasant 55-year-old gentleman with significant history of smoking was brought by ambulance to the emergency department with acute inferior ST elevation myocardial infarction. An emergent heart catheterization was performed and revealed acute total occlusion of the RCA in the midportion with a large thrombus burden with mild to moderate disease involving the left coronary system. The patient underwent an aspiration thrombectomy along with successful stenting of the RCA and reduction of stenosis from 100% to 0%. He still have intermediate to severe disease involving the RCA in the distal portion distal to the stent was placed yesterday. I decided to treat that medically. He was seen today, March [id number]. He is asymptomatic from the cardiac standpoint of view. No chest pain or chest discomfort, shortness of breath, dizziness or feeling of heart racing or fluttering. The right groin is soft and nontender and without any bruises. He is slightly hypotensive which is likely related to right ventricular ischemia. His systolic blood pressure has been in the upper 80s and 90s. I would continue holding any beta huber or FEDERICA inhibitor at this point. He is on dual antiplatelet therapy along with high intensity statin. An echocardiogram was performed and we will follow-up on it. We will continue watch the patient here in the ICU for additional 24 hours. Objective - Vital Signs Vital signs: Vital Signs Temp 98.4 F 03/07/20 03:30 Pulse 92 03/07/20 07:00 Resp 18 03/07/20 07:00 BP 98/72 03/07/20 07:00 Pulse Ox 97 03/07/20 07:00 Intake & Output 03/06/20 03/07/20 03/07/20 18:59 06:59 18:59 Intake Total 1825 100 Output Total 525 Balance 1300 100 Weight 85.5 kg Intake: IV 1325 100 Sodium Chloride 0.9% 1, 800 100 000 ml @ 100 mls/hr IV . Q10H YESENIA Rx#:[id number] Oral 500 Output: Urine 525 Other: Voiding Method Urinal # Voids 0 0 - Constitutional General appearance: Present: no acute distress - Respiratory Respiratory: bilateral: CTA - Cardiovascular Rhythm: regular Heart sounds: normal: S1, S2 Abnormal Heart Sounds: Present: systolic murmur - Labs CBC & Chem 7: 03/07/20 02:49 03/07/20 02:49 Labs: Abnormal Lab Results - Last 24 Hours (Table) 03/06/20 03/06/20 03/06/20 Range/Units 21:00 21:00 22:42 WBC 13.0 H (3.8-10.6) k/uL Neutrophils # (1.3-7.7) k/uL APTT (22.0-30.0) sec Chloride 111 H (98-107) mmol/L Carbon Dioxide (22-30) mmol/L BUN 23 H (9-20) mg/dL Glucose 119 H (74-99) mg/dL POC Glucose (mg/dL) 101 H (75-99) mg/dL Troponin I (0.000-0.034) ng/mL 03/07/20 03/07/20 03/07/20 Range/Units 02:49 02:49 02:49 WBC 11.9 H (3.8-10.6) k/uL Neutrophils # 9.0 H (1.3-7.7) k/uL APTT 31.4 H (22.0-30.0) sec Chloride 110 H (98-107) mmol/L Carbon Dioxide 21 L (22-30) mmol/L BUN 21 H (9-20) mg/dL Glucose 113 H (74-99) mg/dL POC Glucose (mg/dL) (75-99) mg/dL Troponin I (0.000-0.034) ng/mL 03/07/20 Range/Units 04:31 WBC (3.8-10.6) k/uL Neutrophils # (1.3-7.7) k/uL APTT (22.0-30.0) sec Chloride (98-107) mmol/L Carbon Dioxide (22-30) mmol/L BUN (9-20) mg/dL Glucose (74-99) mg/dL POC Glucose (mg/dL) (75-99) mg/dL Troponin I 61.400 H* (0.000-0.034) ng/mL Assessment and Plan Assessment: Assessment #[address] elevation myocardial infarction #2 status post PCI of the RCA #3 intermediate to severe disease involving the LAD #4 significant history of smoking Plan #1 continue dual antiplatelet therapy #2 continue high intensity statin #3 hold the beta huber and FEDERICA inhibitor in view of the margin the low blood pressure. We will reinitiate them once a pressure is better #4 IV fluid to support the blood pressure. #5 an echocardiogram was Doppler #6 monitor the patient in the ICU for additional 24 hours Thank you for allowing us participate in his care and we'll continue following up with the patient
[2020-03-07] MEDS: ASPIRIN 325 MG TAB PO SCH (08:52)
[2020-03-07] MEDS: NICOTINE 21MG/24HR PATCH TRANSDERM SCH (08:53)
--- NOTE | 2020-03-07 09:53 | ECHOF ---
Referral Reason:STEMI MEASUREMENTS -------- HEIGHT: 180.3 cm WEIGHT: 85.3 kg BP: 90/67 IVSd: 1.1 cm (0.6 - 1.1) LVIDd: 3.2 cm (3.9 - 5.3) LVPWd: 1.3 cm (0.6 - 1.1) IVSs: 1.6 cm LVIDs: 2.8 cm LVPWs: 1.5 cm LAESV Index (A-L): 18.33 ml/m Ao Diam: 3.5 cm (2.0 - 3.7) AV Cusp: 1.6 cm (1.5 - 2.6) LA Diam: 3.0 cm (2.7 - 3.8) MV EXCURSION: 17.007 mm (> 18.000) MV EF SLOPE: 56 mm/s (70 - 150) EPSS: 2.7 cm MV E Otto: 0.91 m/s MV DecT: 178 ms MV A Otto: 0.77 m/s MV E/A Ratio: 1.19 AR PHT: 716 ms RAP: 5.00 mmHg RVSP: 9.56 mmHg FINDINGS -------- Sinus rhythm. This was a technically difficult study with suboptimal views. The left ventricular size is normal. There is mild concentric left ventricular hypertrophy. Overa ll left ventricular systolic function is mildly impaired with, an EF between 45 - 50 %. Basal infer oseptal LV wall motion is hypokinetic. Mid inferoseptal LV wall motion is hypokinetic. Apical s eptum LV wall motion is hypokinetic. The right ventricle is normal in size. The left atrial size is normal. The right atrial size is normal. Lumason used The aortic valve is trileaflet and appears structurally normal. The mitral valve is normal. There is trace mitral regurgitation. The tricuspid valve appears structurally normal. Trace tricuspid regurgitation present. Right omar tricular systolic pressure is normal at < 35 mmHg. There is no pulmonic regurgitation present. The aortic root size is normal. Normal inferior vena cava with normal inspiratory collapse consistent with estimated right atrial pre ssure of 5 mmHg. There is no pericardial effusion. CONCLUSIONS -------- 1. Sinus rhythm. 2. This was a technically difficult study with suboptimal views. 3. The left ventricular size is normal. 4. There is mild concentric left ventricular hypertrophy. 5. Overall left ventricular systolic function is mildly impaired with, an EF between 45 - 50 %. 6. Basal inferoseptal LV wall motion is hypokinetic. 7. Mid inferoseptal LV wall motion is hypokinetic. 8. Apical septum LV wall motion is hypokinetic. 9. The right ventricle is normal in size. 10. The left atrial size is normal. 11. The right atrial size is normal. 12. Lumason used 13. The aortic valve is trileaflet and appears structurally normal. 14. The mitral valve is normal. 15. There is trace mitral regurgitation. 16. The tricuspid valve appears structurally normal. 17. Trace tricuspid regurgitation present. 18. Right ventricular systolic pressure is normal at < 35 mmHg. 19. There is no pulmonic regurgitation present. 20. The aortic root size is normal. 21. Normal inferior vena cava with normal inspiratory collapse consistent with estimated right atrial pressure of 5 mmHg. 22. There is no pericardial effusion. FISHING CAPTAIN: Bernarda Bunch RDCS
[2020-03-07 11:31] VITALS: BMI 25.5
[2020-03-07] MEDS ORDERED: IPRATROPIUM-ALBUTEROL 3 ML NEB INHALATION PRN (13:08)
--- NOTE | 2020-03-07 15:14 | P.HPIM ---
History of Present Illness Patient with the extensive nicotine abuse history came in with complaints of chest pain found to have inferior ST elevation myocardial infarction, patient underwent the cardiac catheterization and stenting of the RCA last night. Emma go denied any shortness of breath fever chills nausea vomiting abdominal pain chest pain resolved patient has mild wheezing on exam echocardiogram showed EF of around 45-50% lesion blood pressure was low because of which FEDERICA inhibitor and beta huber are on hold the patient is presently in regular antiplatelet therapy and a statin. Review of Systems REVIEW OF SYSTEMS: CONSTITUTIONAL: No fever, no malaise, no fatigue. HEENT: No recent visual problems or hearing problems. Denied any sore throat. CARDIOVASCULAR: No orthopnea, PND, no palpitations, no syncope. PULMONARY: No shortness of breath, no cough, no hemoptysis. GASTROINTESTINAL: No diarrhea, no nausea, no vomiting, no abdominal pain. NEUROLOGICAL: No headaches, no weakness, no numbness. HEMATOLOGICAL: Denies any bleeding or petechiae. GENITOURINARY: Denies any burning micturition, frequency, or urgency. MUSCULOSKELETAL/RHEUMATOLOGICAL: Denies any joint pain, swelling, or any muscle pain. ENDOCRINE: Denies any polyuria or polydipsia. The rest of the 14-point review of systems is negative. Past Medical History Past Medical History: No Reported History History of Any Multi-Drug Resistant Organisms: None Reported Past Surgical History: Orthopedic Surgery Additional Past Surgical History / Comment(s): rt ankle Past Anesthesia/Blood Transfusion Reactions: No Reported Reaction Smoking Status: Current every day smoker - Past Family History Father Family Medical History: CVA/TIA, Myocardial Infarction ([place]) Additional Family Medical History / Comment(s): Brain aneurysm Mother Family Medical History: Thyroid Disorder Medications and Allergies Home Medications Medication Instructions Recorded Confirmed Type Feliberto Back & Body Ex Strength 2 tab PO Q6H PRN 03/07/20 03/07/20 History Loratadine [Claritin] 10 mg PO DAILY 03/07/20 03/07/20 History Phenylephrine/Dm/Acetaminop/GG 30 ml PO Q4H PRN 03/07/20 03/07/20 History [Vicks Dayquil Severe Cold-Flu] Vitamin B Complex 1 tab PO DAILY 03/07/20 03/07/20 History Allergies Allergy/AdvReac Type Severity Reaction Status Date / Time venom-honey bee Allergy Unknown Verified 03/07/20 08:18 [bee venom (honey bee)] Physical Exam Vitals: Vital Signs Temp Pulse Resp BP Pulse Ox 03/07/20 13:00 98.5 F 75 20 89/62 94 L 03/07/20 12:00 89 17 101/76 96 03/07/20 11:00 84 13 95/69 94 L 03/07/20 10:00 89 15 96/80 96 03/07/20 09:00 103 H 14 94/70 95 03/07/20 08:00 98.0 F 92 15 101/69 95 03/07/20 07:00 92 18 98/72 97 03/07/20 06:45 86 16 90/65 96 03/07/20 06:30 70 23 97/75 96 03/07/20 06:15 80 24 85/68 95 03/07/20 06:00 74 12 90/67 97 03/07/20 05:45 68 13 96/69 95 03/07/20 05:30 78 27 H 103/65 96 03/07/20 05:15 81 16 95/63 95 03/07/20 05:00 67 14 110/69 96 03/07/20 04:45 83 11 L 103/65 95 05 04:30 93 13 89/68 97 05 04:15 68 12 89/68 94 L 03/07/20 04:00 66 12 85/64 98 05 03:45 66 14 86/62 0520 03:30 98.4 F 65 11 L 90/69 95 05 03:15 69 13 94/65 96 03/07/20 03:00 80 9 L 96/64 94 L 05 02:45 66 12 89/64 0520 02:30 66 9 L 94/62 95 0520 02:15 68 10 L 93/61 96 05 02:00 70 14 101/74 95 05 01:45 77 14 117/76 96 05 01:30 81 13 92/63 96 05 01:10 70 14 91/63 95 0520 01:00 63 18 03/07/20 00:50 81 13 92/72 95 02/19 00:40 66 14 100/69 97 03/07/20 00:30 67 14 97 03/07/20 00:20 71 11 L 95/65 98 03/07/20 00:10 66 18 104/67 96 03/07/20 00:00 73 24 94 L 03/06/20 23:50 68 18 100/69 95 03/06/20 23:40 71 16 87/62 94 L 03/06/20 23:30 72 12 94/62 96 03/06/20 23:29 97.4 F L 95 03/06/20 23:20 97.4 F L 73 14 94/62 95 03/06/20 23:10 71 15 96/61 96 03/06/20 23:00 73 13 92/66 96 03/06/20 22:50 71 14 88/61 94 L 03/06/20 22:42 74 17 88/61 03/06/20 21:42 68 18 119/78 98 03/06/20 21:15 65 17 110/79 99 03/06/20 20:53 97.8 F 67 18 110/84 98 Intake and Output 03/07/20 03/07/20 03/07/20 06:59 14:59 22:59 Intake Total 1300 300 Output Total 525 100 Balance 775 200 Intake: IV 800 300 Sodium Chloride 0.9% 1, 800 300 000 ml @ 100 mls/hr IV . Q10H [facility] Rx#:[id number] Oral 500 Output: Urine 525 100 Other: Voiding Method Urinal Urinal # Voids 0 0 Weight 85.5 kg 85.5 kg PHYSICAL EXAMINATION: GENERAL: The patient is alert and oriented x3, not in any acute distress. Well developed, well nourished. HEENT: Pupils are round and equally reacting to light. EOMI. No scleral icterus. No conjunctival pallor. Normocephalic, atraumatic. No pharyngeal erythema. No thyromegaly. CARDIOVASCULAR: S1 and S2 present. No murmurs, rubs, or gallops. PULMONARY: Mildly decreased air entry into bilateral lung butts with mild expiratory wheezing ABDOMEN: Soft, nontender, nondistended, normoactive bowel sounds. No palpable organomegaly. MUSCULOSKELETAL: No joint swelling or deformity. EXTREMITIES: No cyanosis, clubbing, or pedal edema. NEUROLOGICAL: Gross neurological examination did not reveal any focal deficits. SKIN: No rashes. Results CBC & Chem 7: 03/07/20 02:49 03/07/20 02:49 Labs: Abnormal Lab Results - Last 24 Hours (Table) 03/06/20 03/06/20 03/06/20 Range/Units 21:00 21:00 22:42 WBC 13.0 H (3.8-10.6) k/uL Neutrophils # (1.3-7.7) k/uL APTT (22.0-30.0) sec Chloride 111 H (98-107) mmol/L Carbon Dioxide (22-30) mmol/L BUN 23 H (9-20) mg/dL Glucose 119 H (74-99) mg/dL POC Glucose (mg/dL) 101 H (75-99) mg/dL Troponin I (0.000-0.034) ng/mL 03/07/20 03/07/20 03/07/20 Range/Units 02:49 02:49 02:49 WBC 11.9 H (3.8-10.6) k/uL Neutrophils # 9.0 H (1.3-7.7) k/uL APTT 31.4 H (22.0-30.0) sec Chloride 110 H (98-107) mmol/L Carbon Dioxide 21 L (22-30) mmol/L BUN 21 H (9-20) mg/dL Glucose 113 H (74-99) mg/dL POC Glucose (mg/dL) (75-99) mg/dL Troponin I (0.000-0.034) ng/mL 03/07/20 Range/Units 04:31 WBC (3.8-10.6) k/uL Neutrophils # (1.3-7.7) k/uL APTT (22.0-30.0) sec Chloride (98-107) mmol/L Carbon Dioxide (22-30) mmol/L BUN (9-20) mg/dL Glucose (74-99) mg/dL POC Glucose (mg/dL) (75-99) mg/dL Troponin I 61.400 H* (0.000-0.034) ng/mL Thrombosis Risk Factor Assmnt - Choose All That Apply Any of the Below Risk Factors Present?: Yes Each Factor Represents 1 point: Acute [place], Age 41-60 years, Medical pt on bed rest Thrombosis Risk Factor Assessment Total Risk Factor Score: 3 Thrombosis Risk Factor Assessment Level: Moderate Risk Assessment and Plan Plan: -Acute non-ST elevation myocardial infarction status post cardiac catheterization and stenting of RCA. Continue with the dual antiplatelet therapy and a statin. Patient still has intermediate to severe disease involving LAD -Mild acute systolic dysfunction asymmetry in with a beta huber on hold because of low blood pressure patient is not in acute heart failure exacerbation of pulmonary edema -History of COPD with mild acute exacerbation patient will be started on inhalational treatments -Nicotine abuse: Counseling was provided patient had presently has a nicotine patch
[2020-03-07] MEDS: PRASUGREL 10 MG TAB PO SCH (19:42)
[2020-03-07] MEDS ORDERED: ATORVASTATIN 80 MG TAB PO SCH (21:00)
[2020-03-08 05:49] LABS: African American GFR (CKD) >90 (>60 ml/min/1.73 sqM); Anion Gap 5 mmol/L; Blood Urea Nitrogen 19 mg/dL (9-20); Calcium 8.7 mg/dL (8.4-10.2); Carbon Dioxide 22 mmol/L (22-30); Chloride 112 mmol/L (98-107); Glucose 95 mg/dL (74-99); Non-African American GFR(CKD) >90 (>60 ml/min/1.73 sqM); Potassium 4.4 mmol/L (3.5-5.1); Sodium 139 mmol/L (137-145)
[2020-03-08 06:05] LABS: Basophils % (A) 0 %; Eosinophils # (A) 0.2 k/uL (0-0.7); Eosinophils % (A) 2 %; HCT 41.1 % (39.0-53.0); HGB 14.4 gm/dL (13.0-17.5); Lymphocytes # (A) 2.7 k/uL (1.0-4.8); Lymphocytes % (A) 24 %; MCH 34.9 pg (25.0-35.0); MCV 99.6 fL (80.0-100.0); Macrocytosis Slight; Mean Platelet Volume 7.8; Monocytes # (A) 0.6 k/uL (0-1.0); Monocytes % (A) 5 %; Neutrophils # (A) 7.3 k/uL (1.3-7.7); Neutrophils % (A) 66 %; Platelet Count 193 k/uL (150-450); RBC 4.12 m/uL (4.30-5.90); RDW 14.2 % (11.5-15.5)
[2020-03-08] MEDS: NICOTINE 21MG/24HR PATCH TRANSDERM SCH (09:04)
[2020-03-08] MEDS: ASPIRIN 325 MG TAB PO SCH (09:04)
[2020-03-08] MEDS: PRASUGREL 10 MG TAB PO SCH (09:04)
[2020-03-08] MEDS ORDERED: METOPROLOL TARTRATE 12.5 MG TAB PO SCH (12:15)
[2020-03-08 13:46] VITALS: BP 105/75; TEMP 98.9
[2020-03-08 15:08] VITALS: PULSE 84; RESP 34
--- NOTE | 2020-03-08 15:27 | P.DS ---
Providers Date of admission: 03/06/20 21:01 Attending physician: David White Consults: 03/06/20 20:56 Consult Physician Stat Consulting Provider: Cardiology Yash Consult Reason/Comments: STEMI ACTIVATION COMPLETE Do you want consulting provider notified?: Yes 03/06/20 22:26 Consult Physician Routine Consulting Provider: Aviva Berrios Consult Reason/Comments: Post Interventional patient Do you want consulting provider notified?: Already Contacted 03/07/20 11:23 Consult Physician Urgent Consulting Provider: Yousuf Wright Consult Reason/Comments: homicidal statements Do you want consulting provider notified?: Yes Primary care physician: Stated None Hospital Course: Patient with the extensive nicotine abuse history came in with complaints of chest pain found to have inferior ST elevation myocardial infarction, patient underwent the cardiac catheterization and stenting of the RCA last night. Patient denied any shortness of breath fever chills nausea vomiting abdominal pain chest pain resolved patient has mild wheezing on exam echocardiogram showed EF of around 45-50% lesion blood pressure was low because of which FEDERICA inhibitor and beta huber are on hold the patient is presently in regular antiplatelet therapy and a statin. 03/08/2020 Patient is cleared for discharge. Patient the blood pressure is still low normal patient will benefit from FEDERICA inhibitor but the at this point of time he may not be able to tolerate it because of which patient was started on low-dose of beta huber and is being discharged eventually patient may need FEDERICA inhibitor are additives in the septal huber his EF is around 45-50%. Patient wheezing significant improvement patient will be discharged on inhaled steroids and the albuterol upon discharge nicotine cessation counseling was provided patient will be prescribed nicotine patches PHYSICAL EXAMINATION: GENERAL: The patient is alert and oriented x3, not in any acute distress. Well developed, well nourished. HEENT: Pupils are round and equally reacting to light. EOMI. No scleral icterus. No conjunctival pallor. Normocephalic, atraumatic. No pharyngeal erythema. No thyromegaly. CARDIOVASCULAR: S1 and S2 present. No murmurs, rubs, or gallops. PULMONARY: Chest is clear to auscultation, no wheezing or crackles. ABDOMEN: Soft, nontender, nondistended, normoactive bowel sounds. No palpable organomegaly. MUSCULOSKELETAL: No joint swelling or deformity. EXTREMITIES: No cyanosis, clubbing, or pedal edema. NEUROLOGICAL: Gross neurological examination did not reveal any focal deficits. SKIN: No rashes. Assessment and Plan Plan: -Acute non-ST elevation myocardial infarction status post cardiac catheterization and stenting of RCA. Continue with the dual antiplatelet therapy and a statin. Patient still has intermediate to severe disease involving LAD -Mild acute systolic dysfunction . patient is not in acute heart failure exacerbation of pulmonary edema -History of COPD with mild acute exacerbation patient will be started on inhalational treatments -Nicotine abuse: Counseling was provided patient had presently has a nicotine patch Patient Condition at Discharge: Serious Plan - Discharge Summary New Discharge Prescriptions: New Aspirin 325 mg PO DAILY #30 tab Prasugrel [Effient] 10 mg PO DAILY #30 tab Nicotine 21Mg/24Hr Patch [Habitrol] 1 patch TRANSDERM DAILY #14 patch Atorvastatin [Lipitor] 80 mg PO HS #30 tab Metoprolol Tartrate [Lopressor] 12.5 mg PO BID #60 tab Nitroglycerin Sl Tabs [Nitrostat] 0.4 mg SUBLINGUAL Q5M PRN #30 tab PRN Reason: Chest Pain Fluticasone/Salmeterol [Advair 250-50 Diskus] 1 inhalation PO BID #1 inhaler Albuterol Inhaler [Ventolin Hfa Inhaler] 2 puff INHALATION RT-QID PRN #1 inhaler PRN Reason: Shortness Of Breath Or Wheezing Continue Vitamin B Complex 1 tab PO DAILY Loratadine [Claritin] 10 mg PO DAILY Feliberto Back & Body Ex Strength 2 tab PO Q6H PRN PRN Reason: Pain Discontinued Phenylephrine/Dm/Acetaminop/GG [Vicks Dayquil Severe Cold-Flu] 30 ml PO Q4H PRN PRN Reason: COLD SYMPTOMS & CONGESTION Discharge Medication List Feliberto Back & Body Ex Strength 2 tab PO Q6H PRN 03/07/20 [History] Loratadine [Claritin] 10 mg PO DAILY 03/07/20 [History] Vitamin B Complex 1 tab PO DAILY 03/07/20 [History] Albuterol Inhaler [Ventolin Hfa Inhaler] 2 puff INHALATION RT-QID PRN #1 inhaler 03/08/20 [Rx] Aspirin 325 mg PO DAILY #30 tab 03/08/20 [Rx] Atorvastatin [Lipitor] 80 mg PO HS #30 tab 03/08/20 [Rx] Fluticasone/Salmeterol [Advair 250-50 Diskus] 1 inhalation PO BID #1 inhaler 03/08/20 [Rx] Metoprolol Tartrate [Lopressor] 12.5 mg PO BID #60 tab 03/08/20 [Rx] Nicotine 21Mg/24Hr Patch [Habitrol] 1 patch TRANSDERM DAILY #14 patch 03/08/20 [Rx] Nitroglycerin Sl Tabs [Nitrostat] 0.4 mg SUBLINGUAL Q5M PRN #30 tab 03/08/20 [Rx] Prasugrel [Effient] 10 mg PO DAILY #30 tab 03/08/20 [Rx] Follow up Appointment(s)/Referral(s): Katherine Vega MD [REFERRING] - 1 Week Allan Ledezma MD [STAFF PHYSICIAN] - 1 Week Patient Instructions/Handouts: Heart Attack (DC), How to Stop Smoking (DC) Discharge Disposition: HOME SELF-CARE
--- NOTE | 2020-03-08 17:12 | P.CN ---
Psychiatric Consult - . Consult date: 03/08/20 Consult:: IDENTIFYING DATA: He is a 55-year-old single male admitted to the ICU for treatment of acute ND. The hospitalist submitted a psychiatric consult because the patient apparently made "homicidal statements". HISTORY OF PRESENT ILLNESS: I reviewed the record and interviewed the patient. He was a poor historian. He was guarded and evasive. He began the interview by complaining of unusual experiences at his home. He talked about their watching television and talking to friends about spirituality, demons, ghosts and possession. He expressed a belief that his stomach and his leg were scratched by a supernatural entity. The scratches have healed and he spent time with fumbling through his phone to show me pictures of the scratches. He believes that his house is haunted and expressed reluctance to return there. He feels that he has been haunted by ghosts and demons. I asked him about the "homicidal statements." He stated when he came to the hospital he was upset and angry and "may have" express thoughts of harming someone. He denied that he currently has these thoughts and attributed them to his distress including the above concerns as well as the reason for his hospitalization. He alleged that even though he had made some statements of harming others he would never follow through with these actions and has "never" hurt anybody. He talked about feeling depressed, overwhelmed and ignored by an extended family. However, he denied having suicidal ideation, wishes, suicidal plan or suicidal intent. PAST PSYCHIATRIC HISTORY: He was admitted to [facility] and voluntarily "maybe 20 years ago. ... My mother made me come here." He was diagnosed with schizophrenia and treated through [facility] in the past. He is currently not prescribed psychotropic medication and does not meet with a mental health professional. PAST MEDICAL HISTORY: See medical history and physical. ALLERGIES: ALLERGIES. SUBSTANCE USE HISTORY: He was evasive about his substance abuse history. When I asked about his alcohol use he talked about a girlfriend who has an alcohol use problem drinking more than 1/5 of liquor per day. When I redirected the question back to his alcohol use he replies that he "sometimes drinks." He would not talk about the amount and frequency. He admitted that he was in a substance abuse treatment program "several years ago." He denied the use of other drugs to get high, help him sleep or changes mood. FAMILY PSYCHIATRIC/SUBSTANCE USE HISTORY: He never answered questions about his family psychiatric or substance abuse history. Instead, he complained how he is neglected by his only sister and his distant relatives. He also talked about the recurrent conflict with her cousin.. SOCIAL HISTORY: His born and raised in [place]. He is unemployed and re ceives social security disability for the diagnosis of schizophrenia. He lives alone in apartment. He is single and has no children. MENTAL STATUS EXAM: He presented as a aunt 55-year-old male with widely spaced teeth. He made eye contact and appeared to attend to the interview. He had no prominent physical abnormalities. He isn't anxious facial expression. He was alert and oriented to person, place and time. He showed no abnormality of psychomotor activity. His speech was spontaneous with normal rate, rhythm and volume. His affect was anxious. He denied suicidal ideation or wishes. He denied homicidal ideation. He denied feeling hopeless, helpless or worthless. He ruminated about family problems and his belief that he is neglected and ignored by his family as well as his belief that his home is haunted. He did not express ideas reference but described paranoid ideation and possible paranoid delusional beliefs. His thinking was concrete but his associations were logical, organized and goal directed. He denied currently experiencing auditory, visual or olfactory hallucinations but described past experiences suggestive of somatic and possibly visual visual hallucinations. Global impression of intellect is average to below. IMPRESSIONS: He is a 55-year-old male admitted to the [facility] for evaluation treatment of acute myocardial infarction. During his admission assessment he expressed homicidal thoughts. He has a history of mental illness and is not currently engaged in treatment. He admitted to expressing harm to others but denied plan or intent. He made a statement when he initially came in hospital and he was acutely distressed. He has signs and symptoms suggestive for chronic schizophrenia including poor social adjustment, paranoia and intermittent sensory misperceptions. He would benefit from continued outpatient mental health treatment but does not meet criteria for transfer to the inpatient psychiatric unit. DIAGNOSIS: Schizophrenia, rule out alcohol use disorder PLAN: Refer to [facility] for outpatient psychiatric and substance abuse treatment. Psychiatry will sign off on the case. Thank you for the consult. 03/08/20 09:00 03/08/20 17:10
== END 2020-03-08 15:45 | disposition home or self-care (01) | DRG 247 ==
LOC: EC 20:52 → 2SICU 21:01
PROVIDERS: ADMIT Internal Medicine; ATTEND Internal Medicine
PROC: 4A023N7 Measurement of Cardiac Sampling and Pressure, Left Heart, Percutaneous Approach (ICD-10-PCS; principal; 2020-03-06 21:20)
PROC: 027034Z Dilation of Coronary Artery, One Artery with Drug-eluting Intraluminal Device, Percutaneous Approach (ICD-10-PCS; principal; 2020-03-06 21:20)
PROC: B2111ZZ Fluoroscopy of Multiple Coronary Arteries using Low Osmolar Contrast (ICD-10-PCS; principal; 2020-03-06 21:20)
PROC: 02C03ZZ Extirpation of Matter from Coronary Artery, One Artery, Percutaneous Approach (ICD-10-PCS; principal; 2020-03-06 21:20)
DX: I21.19 ST elevation (STEMI) myocardial infarction involving other coronary artery of inferior wall (principal); J44.1 Chronic obstructive pulmonary disease with (acute) exacerbation; F17.200 Nicotine dependence, unspecified, uncomplicated; I25.10 Atherosclerotic heart disease of native coronary artery without angina pectoris; F20.9 Schizophrenia, unspecified; I25.82 Chronic total occlusion of coronary artery; F32.9 Major depressive disorder, single episode, unspecified; Z11.59 Encounter for screening for other viral diseases; I25.2 Old myocardial infarction; Z82.49 Family history of ischemic heart disease and other diseases of the circulatory system; Z91.030 Bee allergy status
CPT/HCPCS: 36415; 71045; 80048; 80053; 84484; 85025; 85610; 85730; 93005; 93306; 93458; 94640; 96361; 96374; 96375; 99285

== ENCOUNTER 2020-06-08 16:57 | Emergency (ER) | payer MEDICARE, OTHER ==
[2020-06-08 17:38] VITALS: TEMP 98.2
[2020-06-08] MEDS ORDERED: predniSONE 20 MG TAB PO STA (19:23)
[2020-06-08] MEDS ORDERED: diphenhydrAMINE 25 MG CAP PO STA (19:24)
[2020-06-08] MEDS ORDERED: FAMOTIDINE 20 MG TAB PO STA (19:24)
--- NOTE | 2020-06-08 19:31 | ED ---
Allergic Reaction HPI - General Chief complaint: Allergic Reaction Stated complaint: bee sting-facial swelling Time Seen by Provider: 06/08/20 18:21 Source: patient Mode of arrival: ambulatory Limitations: no limitations - History of Present Illness Initial Comments: Patient is a 55-year-old male who presents emergency Department with reported right face swelling. Patient states that he was attempting to spray a bee hive with bee killer last night when he was stung by one in the face. Patient had significant facial swelling after the incident. Reported that he was having some shortness of breath however did not want to come into the emergency department. Reports that he previously was stung by a bee a few years ago to the left leg and had significant swelling the left leg. Reports that it took several weeks for the swelling to go down. He never sought care. Patient is coming into the emergency room in today hoping that we can assist him with the swelling. He denies a sensation that his airway is closing off. Denies any other ALLERGIES. He denies drooling or unable to handle his secretions. No chest pain or shortness of breath. Has not taken any medications for his symptoms prior to coming to the hospital. No other alleviating, the precipitating or modifying factors - Related Data Home Medications Medication Instructions Recorded Confirmed Feliberto Back & Body Ex Strength 2 tab PO Q6H PRN 03/07/20 03/07/20 Loratadine [Claritin] 10 mg PO DAILY 03/07/20 03/07/20 Vitamin B Complex 1 tab PO DAILY 03/07/20 03/07/20 Previous Rx's Medication Instructions Recorded Albuterol Inhaler [Ventolin Hfa 2 puff INHALATION RT-QID PRN #1 03/08/20 Inhaler] inhaler Aspirin 325 mg PO DAILY #30 tab 03/08/20 Atorvastatin [Lipitor] 80 mg PO HS #30 tab 03/08/20 Fluticasone/Salmeterol [Advair 1 inhalation PO BID #1 inhaler 03/08/20 250-50 Diskus] Metoprolol Tartrate [Lopressor] 12.5 mg PO BID #60 tab 03/08/20 Nicotine 21Mg/24Hr Patch [Habitrol] 1 patch TRANSDERM DAILY #14 patch 03/08/20 Nitroglycerin Sl Tabs [Nitrostat] 0.4 mg SUBLINGUAL Q5M PRN #30 tab 03/08/20 Prasugrel [Effient] 10 mg PO DAILY #30 tab 03/08/20 Famotidine [Pepcid] 20 mg PO DAILY #5 tablet 06/08/20 diphenhydrAMINE [Benadryl] 25 mg PO TID PRN #15 capsule 06/08/20 predniSONE [Deltasone] 20 mg PO BID #10 tab 06/08/20 EPINEPHrine (Auto Inject) [Epipen] 0.3 mg IM ONCE PRN #2 pen 06/09/20 Allergies Allergy/AdvReac Type Severity Reaction Status Date / Time venom-honey bee Allergy Unknown Verified 06/08/20 17:38 [bee venom (honey bee)] Review of Systems ROS Statement: Those systems with pertinent positive or pertinent negative responses have been documented in the HPI. ROS Other: All systems not noted in ROS Statement are negative. Past Medical History Past Medical History: No Reported History, COPD, Myocardial Infarction ([place]) History of Any Multi-Drug Resistant Organisms: None Reported Past Surgical History: Heart Catheterization With Stent, Orthopedic Surgery Additional Past Surgical History / Comment(s): rt ankle Past Anesthesia/Blood Transfusion Reactions: No Reported Reaction Past Psychological History: Depression Smoking Status: Current every day smoker Past Alcohol Use History: None Reported Past Drug Use History: Marijuana - Past Family History Father Family Medical History: CVA/TIA, Myocardial Infarction ([place]) Additional Family Medical History / Comment(s): Brain aneurysm Mother Family Medical History: Thyroid Disorder General Exam Limitations: no limitations General appearance: alert, in no apparent distress Head exam: Present: atraumatic, normocephalic, other (mild soft tissue swelling right cheek) Eye exam: Present: PERRL, EOMI, other (right upper eyelid swelling ). Absent: conjunctival injection ENT exam: Present: normal exam, mucous membranes moist Neck exam: Present: normal inspection. Absent: tenderness, meningismus, lymphadenopathy Respiratory exam: Present: normal lung sounds bilaterally. Absent: respiratory distress, wheezes, rales, rhonchi, stridor Cardiovascular Exam: Present: regular rate, normal rhythm, normal heart sounds. Absent: systolic murmur, diastolic murmur, rubs, gallop, clicks Course Vital Signs 06/08/20 06/08/20 17:32 19:41 Temperature 98.2 F Pulse Rate 71 60 Respiratory 18 16 Rate Blood Pressure 101/64 118/85 O2 Sat by Pulse 97 95 Oximetry Medical Decision Making - Medical Decision Making Upon arrival patient is placed in room 7. A thorough history and physical exam is performed. Patient does have swelling noted to the right of his face however no signs of respiratory compromise. Patient was given 60 mg of prednisone, 20 mg of Pepcid and 25 mg of Benadryl. The area was inspected and does not appear to have any retained stinger. Patient be discharged home at this time with a prescription for Pepcid, prednisone and famotidine to take for the next 5 days. Also with the patient prescription for an EpiPen. Instructed to use the EpiPen the next time he is stung and present immediately to the emergency room. Patient understood this. He gave any new or worsening symptoms return to the emergency room. The patient was discharged home in stable condition Disposition Clinical Impression: Allergic reaction, Bee sting Disposition: HOME SELF-CARE Condition: Stable Instructions (If sedation given, give patient instructions): Insect Bite or Sting (ED) Additional Instructions: Please follow up with your primary care doctor. Return to the emergency department for any new or worsening symptoms Prescriptions: diphenhydrAMINE [Benadryl] 25 mg PO TID PRN #15 capsule PRN Reason: Itching predniSONE [Deltasone] 20 mg PO BID #10 tab EPINEPHrine (Auto Inject) [Epipen] 0.3 mg IM ONCE PRN #2 pen PRN Reason: Anaphylaxis Famotidine [Pepcid] 20 mg PO DAILY #5 tablet Is patient prescribed a controlled substance at d/c from ED?: No Referrals: Katherine Vega MD [Primary Care Provider] - 1-2 days Time of Disposition: 19:31
[2020-06-08 19:44] VITALS: BP 118/85; PULSE 60; RESP 16
== END 2020-06-08 19:44 | disposition home or self-care (01) ==
LOC: EC 16:57
DX: T63.441A Toxic effect of venom of bees, accidental (unintentional), initial encounter (principal); F17.200 Nicotine dependence, unspecified, uncomplicated; Z91.030 Bee allergy status; I25.2 Old myocardial infarction; Z95.5 Presence of coronary angioplasty implant and graft
CPT/HCPCS: 99284; J7512

== ENCOUNTER 2022-04-19 20:14 | Emergency (ER) | payer MEDICARE, OTHER ==
[2022-04-19 20:49] VITALS: RESP 18
--- NOTE | 2022-04-19 21:22 | ED ---
Chest Pain HPI - General Chief Complaint: Chest Pain Stated Complaint: CARDIAC HISTORY Time Seen by Provider: 04/19/22 20:47 Source: patient, RN notes reviewed Mode of arrival: ambulatory Limitations: no limitations - History of Present Illness Initial Comments: 57-year-old male with a history of heart disease status post a cath and stent one 8 years ago who states for the past 2-3 days she's been having intermittent chest pains nausea vomiting and body aches with sharp feeling aches in his muscles chills night sweats. He also states he's had episodes of feeling faint and dizzy he has a chronic cough with clear phlegm he states. He does state his chest pain was more like his prior chest pain with his heart disease today moderate severity typical nitroglycerin and it totally resolved. Is generally feels ill doesn't have any other complaints modifying factors at this time no known exposures to infectious diseases MD Complaint: chest pain, other - Related Data Home Medications Medication Instructions Recorded Confirmed Vitamin B Complex 1 tab PO DAILY 03/07/20 04/19/22 Acetaminophen Tab [Tylenol Tab] 500 mg PO Q6HR PRN 04/19/22 04/19/22 Metoprolol Tartrate [Lopressor] 12.5 mg PO BID 04/19/22 04/19/22 Previous Rx's Medication Instructions Recorded Atorvastatin [Lipitor] 80 mg PO HS #30 tab 03/08/20 Allergies Allergy/AdvReac Type Severity Reaction Status Date / Time venom-honey bee Allergy Unknown Verified 04/19/22 22:22 [bee venom (honey bee)] Review of Systems ROS Statement: Those systems with pertinent positive or pertinent negative responses have been documented in the HPI. ROS Other: All systems not noted in ROS Statement are negative. Past Medical History Past Medical History: No Reported History, COPD, Myocardial Infarction ([place]) History of Any Multi-Drug Resistant Organisms: None Reported Past Surgical History: Heart Catheterization With Stent, Orthopedic Surgery Additional Past Surgical History / Comment(s): rt ankle Past Anesthesia/Blood Transfusion Reactions: No Reported Reaction Past Psychological History: Depression Smoking Status: Current every day smoker Past Alcohol Use History: None Reported Past Drug Use History: Marijuana - Past Family History Father Family Medical History: CVA/TIA, Myocardial Infarction ([place]) Additional Family Medical History / Comment(s): Brain aneurysm Mother Family Medical History: Thyroid Disorder General Exam - General Exam Comments Initial Comments: This is a well-developed well-nourished awake alert oriented 3 male Limitations: no limitations General appearance: alert, anxious Head exam: Present: atraumatic, normocephalic, normal inspection Eye exam: Present: normal appearance, PERRL, EOMI. Absent: scleral icterus, conjunctival injection, periorbital swelling ENT exam: Present: normal exam, mucous membranes moist Neck exam: Present: normal inspection. Absent: tenderness, meningismus, lymphadenopathy Respiratory exam: Present: normal lung sounds bilaterally. Absent: respiratory distress, wheezes, rales, rhonchi, stridor Cardiovascular Exam: Present: regular rate, normal rhythm, normal heart sounds. Absent: systolic murmur, diastolic murmur, rubs, gallop, clicks GI/Abdominal exam: Present: soft, normal bowel sounds. Absent: distended, tenderness, guarding, rebound, rigid Extremities exam: Present: normal inspection, full ROM, normal capillary refill. Absent: tenderness, pedal edema, joint swelling, calf tenderness Back exam: Present: normal inspection Neurological exam: Present: alert, oriented X3, CN II-XII intact Psychiatric exam: Present: normal affect, normal mood Skin exam: Present: warm, dry, intact, normal color. Absent: rash Course Vital Signs 04/19/22 04/19/22 04/19/22 20:16 20:49 22:30 Temperature 98.4 F 99.8 F H Pulse Rate 80 72 75 Respiratory 22 18 18 Rate Blood Pressure 113/71 97/57 105/69 O2 Sat by Pulse 97 97 99 Oximetry 04/19/22 23:19 Temperature 99.2 F Pulse Rate 71 Respiratory 18 Rate Blood Pressure 105/69 O2 Sat by Pulse 96 Oximetry Chest Pain MDM - MDM Imaging reviewed no acute findings patient does have COVID-19 on testing. We did discuss treatment options he is accepted the IV antibiotic. We discharged home after this. Disposition Clinical Impression: COVID-19, Viral syndrome, Febrile illness, acute, Dehydration, Atypical chest pain Disposition: HOME SELF-CARE Condition: Good Instructions (If sedation given, give patient instructions): Chest Pain (ED), Coronavirus Disease 2019 (COVID-19), Droplet Precautions (ED), Face Coverings (Masks) and COVID-19 (ED), How to Recover from COVID-19 at Home (ED), COVID-19 (Coronavirus Disease 2019) (ED), Dehydration (ED) Is patient prescribed a controlled substance at d/c from ED?: No Referrals: Katherine Vega MD [Primary Care Provider] - 1-2 days Decision Date: 04/19/22 Decision Time: 23:25
[2022-04-19 21:26] LABS: HCT 45.9 % (39.0-53.0); HGB 15.1 gm/dL (13.0-17.5); MCH 32.2 pg (25.0-35.0); MCHC 32.8 g/dL (31.0-37.0); MCV 98.2 fL (80.0-100.0); Mean Platelet Volume 7.3; Platelet Count 184 k/uL (150-450); RBC 4.68 m/uL (4.30-5.90); RDW 13.8 % (11.5-15.5); WBC 4.3 k/uL (3.8-10.6)
[2022-04-19 21:39] LABS: Partial Thromboplastin Time 27.6 sec (22.0-30.0); Prothrombin Time 10.9 sec (9.0-12.0)
[2022-04-19 21:49] LABS: Albumin 3.8 g/dL (3.5-5.0); Calcium 8.7 mg/dL (8.4-10.2); Total Bilirubin 0.6 mg/dL (0.2-1.3); Total Protein 6.3 g/dL (6.3-8.2)
[2022-04-19 21:53] LABS: Potassium 4.7 mmol/L (3.5-5.1)
[2022-04-19 22:32] VITALS: BP 105/69
[2022-04-19] MEDS ORDERED: KETOROLAC 15 MG/ML 1 ML VIAL IVP STA (22:33)
[2022-04-19 22:44] LABS: Band Neutrophils % 2 %; Basophils # (M) 0.04 k/uL (0-0.2); Monocytes # (M) 0.86 k/uL (0-1.0); Neutrophils % (M) 63 %; Nucleated Red Blood Cells 0 /100 WBC (0-0); RBC Morphology Normal; Total Cells Counted 100
[2022-04-19] MEDS ORDERED: BEBTELOVIMAB (EUA) 175 MG/2 ML VIAL IV ONE (23:00)
[2022-04-19 23:20] VITALS: PULSE 71; TEMP 99.2
== END 2022-04-20 00:29 | disposition home or self-care (01) ==
LOC: EC 20:14
DX: U07.1 COVID-19 (principal); I25.2 Old myocardial infarction; F17.200 Nicotine dependence, unspecified, uncomplicated; Z86.73 Personal history of transient ischemic attack (TIA), and cerebral infarction without residual deficits; Z91.030 Bee allergy status
CPT/HCPCS: 36415; 93005; 80053; 82550; 83735; 84484; 85025; 85610; 85730; 87502; 87635; 99285; 96374; J1885; Q0222

== ENCOUNTER → 2022-05-07 | Outpatient (CLI) | payer MEDICARE, OTHER ==
--- NOTE | 2022-05-07 22:48 | CT ---
EXAMINATION TYPE: CT chest wo con CT DLP: 736.10 mGycm, Automated exposure control for dose reduction was used. DATE OF EXAM: 05/07/2022 5:22 PM COMPARISON: Chest radiograph from 03/06/2020 CLINICAL INDICATION:Male, 57 years old with history of R05.9 Cough; PHH, Cough and COPD. High Resolut ion Technique: Multiple axial images of the chest at selected intervals were obtained in prone and supine imaging. Please note that due to interval acquisition images as defined by high-resolution CT protoc ol the entire lung parenchyma is not evaluated, therefore small nodular densities may not be visualiz ed. What relation to Contrast used: none. Oral contrast used: none. FINDINGS: LUNGS: There is no evidence of interstitial thickening, honeycombing or architectural distortion in t he lungs. No bronchiectasis. No significant expiratory air trapping. No acute area of infiltrative or consolidative change. There is mild centrilobular emphysema greatest in the upper lung zones. Few sc attered groundglass opacity seen on the right. LARGE AIRWAYS: Central airways are patent. PLEURA: No pleural effusion or thickening. HEART AND PERICARDIUM: Heart is normal in size. There is no pericardial effusion. Mild coronary arter y calcifications present. MEDIASTINUM AND KAYLA: No mediastinal or hilar lymphadenopathy or soft tissue mass. VESSELS: The thoracic aorta is normal in course and caliber. CHEST WALL AND DIAPHRAGM: Normal. LOWER NECK: Normal. UPPER ABDOMEN: Unremarkable. MUSCULOSKELETAL: No acute fracture. Multiple old rib fractures some of which appear subacute on the l eft posterior thoracic cage. IMPRESSION: 1. No evidence of interstitial lung disease. 2. Mild to moderate COPD changes. 3. Scattered nodules suggested, evaluation limited on high-resolution protocol of the chest. Conside r dedicated CT low dose chest for evaluation of pulmonary nodules.
== END | disposition home or self-care (01) ==
LOC: RADCTMAIN 16:47
PROVIDERS: ATTEND Internal Medicine
DX: J44.9 Chronic obstructive pulmonary disease, unspecified (principal)
CPT/HCPCS: 71250

== ENCOUNTER 2022-07-02 03:14 | Inpatient (IN) | payer MEDICARE, OTHER ==
[2022-07-02] MEDS ORDERED: SODIUM CHLORIDE 0.9% 1,000 ML IV STA (03:31)
[2022-07-02] MEDS ORDERED: HEPARIN SODIUM 1,000 UN/ML (10ML VL) IV ONE (03:31)
[2022-07-02] MEDS ORDERED: NITROGLYCERIN SL TABS 0.4 MG TAB SUBLINGUAL PRN ×2 (03:31→06:19)
--- NOTE | 2022-07-02 03:31 | ED ---
Chest Pain HPI - General Chief Complaint: Chest Pain Stated Complaint: Chest Pain Time Seen by Provider: 07/02/22 03:30 Source: patient, RN notes reviewed, old records reviewed Mode of arrival: ambulatory Limitations: no limitations - History of Present Illness Initial Comments: This is a-year-old male to the ER for evaluation chest pain. Patient has s ignificant anterior chest pain and heaviness shortness breath with swelling and diaphoresis. No trauma no fevers no cough congestion of travel history sick contacts patient does have COPD with history of prior [place] MD Complaint: chest pain -: hour(s) Onset: during rest, during exertion Pain Location: substernal, left chest Pain Radiation: none Severity: moderate Severity scale (1-10): 6 Quality: tightness, heaviness Improves With: nothing Worsens With: nothing Anginal Symptoms: nausea, dyspnea Other Symptoms: palpitations Treatments Prior to Arrival: none - Related Data Home Medications Medication Instructions Recorded Confirmed Vitamin B Complex 1 tab PO DAILY 03/07/20 07/02/22 Acetaminophen Tab [Tylenol Tab] 500 mg PO Q6HR PRN 04/19/22 07/02/22 Metoprolol Tartrate [Lopressor] 12.5 mg PO BID 04/19/22 07/02/22 Previous Rx's Medication Instructions Recorded Atorvastatin [Lipitor] 80 mg PO HS #30 tab 03/08/20 Allergies Allergy/AdvReac Type Severity Reaction Status Date / Time venom-honey bee Allergy Unknown Verified 07/02/22 06:33 [bee venom (honey bee)] Review of Systems ROS Statement: Those systems with pertinent positive or pertinent negative responses have been documented in the HPI. ROS Other: All systems not noted in ROS Statement are negative. EKG Findings - EKG Comments: EKG Findings:: EKG with ST elevated [place] 62 TN 170 QRS [address] elevated SD with reciprocal depressions Past Medical History Past Medical History: COPD, Myocardial Infarction ([place]) History of Any Multi-Drug Resistant Organisms: None Reported Past Surgical History: Heart Catheterization With Stent, Orthopedic Surgery Additional Past Surgical History / Comment(s): rt ankle Past Anesthesia/Blood Transfusion Reactions: No Reported Reaction Past Psychological History: Depression Smoking Status: Current every day smoker Past Alcohol Use History: None Reported Past Drug Use History: Marijuana - Past Family History Father Family Medical History: CVA/TIA, Myocardial Infarction ([place]) Additional Family Medical History / Comment(s): Brain aneurysm Mother Family Medical History: Thyroid Disorder General Exam Limitations: no limitations General appearance: anxious Head exam: Present: atraumatic, normocephalic, normal inspection Eye exam: Present: normal appearance, PERRL, EOMI. Absent: scleral icterus, conjunctival injection, periorbital swelling ENT exam: Present: normal exam, mucous membranes moist Neck exam: Present: normal inspection. Absent: tenderness, meningismus, lymphadenopathy Respiratory exam: Present: normal lung sounds bilaterally. Absent: respiratory distress, wheezes, rales, rhonchi, stridor Cardiovascular Exam: Present: regular rate, normal rhythm, normal heart sounds. Absent: systolic murmur, diastolic murmur, rubs, gallop, clicks GI/Abdominal exam: Present: soft, normal bowel sounds. Absent: distended, tenderness, guarding, rebound, rigid Extremities exam: Present: normal inspection, full ROM, normal capillary refill. Absent: tenderness, pedal edema, joint swelling, calf tenderness Back exam: Present: normal inspection Neurological exam: Present: alert, oriented X3, CN II-XII intact Psychiatric exam: Present: normal affect, normal mood Skin exam: Present: warm, dry, intact, normal color. 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 Patient does have positive ST elevated SD will go to manager cardiac cath for further evaluation management Critical Care Time Critical Care Time: Yes Total Critical Care Time: 31 Disposition Clinical Impression: Chest pain, STEMI (ST elevation myocardial infarction) Disposition: ADMITTED IP TO THIS HOSP Condition: Critical Is patient prescribed a controlled substance at d/c from ED?: No
[2022-07-02] MEDS: ASPIRIN 81 MG PO STA ×3 (03:43→04:10)
[2022-07-02 03:54] LABS: Basophils # (A) 0.1 k/uL (0-0.2); Basophils % (A) 1 %; Eosinophils # (A) 0.4 k/uL (0-0.7); Eosinophils % (A) 4 %; HCT 47.2 % (39.0-53.0); HGB 15.4 gm/dL (13.0-17.5); Lymphocytes # (A) 3.6 k/uL (1.0-4.8); Lymphocytes % (A) 33 %; MCH 31.4 pg (25.0-35.0); MCHC 32.6 g/dL (31.0-37.0); MCV 96.3 fL (80.0-100.0); Mean Platelet Volume 7.9; Monocytes # (A) 0.7 k/uL (0-1.0); Monocytes % (A) 6 %; Neutrophils # (A) 5.8 k/uL (1.3-7.7); Neutrophils % (A) 54 %; Platelet Count 238 k/uL (150-450); RDW 13.2 % (11.5-15.5); WBC 10.8 k/uL (3.8-10.6)
[2022-07-02] MEDS ORDERED: ATORVASTATIN 80 MG TAB PO STA (03:55)
[2022-07-02] MEDS ORDERED: MORPHINE SULFATE 4 MG/ML SYRINGE IVP STA (03:58)
[2022-07-02 04:03] LABS: ALT 41 U/L (4-49); AST 38 U/L (17-59); African American GFR (CKD) >90 (>60 ml/min/1.73 sqM); Alkaline Phosphatase 81 U/L (38-126); Anion Gap 10 mmol/L; Blood Urea Nitrogen 23 mg/dL (9-20); Calcium 9.5 mg/dL (8.4-10.2); Carbon Dioxide 25 mmol/L (22-30); Chloride 105 mmol/L (98-107); Glucose 129 mg/dL (74-99); Lipase 86 U/L (23-300); Non-African American GFR(CKD) >90 (>60 ml/min/1.73 sqM); Sodium 140 mmol/L (137-145); Total Bilirubin 0.4 mg/dL (0.2-1.3); Total Protein 6.2 g/dL (6.3-8.2)
[2022-07-02 04:04] LABS: Potassium 4.4 mmol/L (3.5-5.1)
[2022-07-02 04:06] LABS: INR 0.9 (<1.2); Partial Thromboplastin Time 23.7 sec (22.0-30.0); Prothrombin Time 10.3 sec (9.0-12.0)
--- NOTE | 2022-07-02 04:15 | P.CRDCN ---
History of Present Illness History of present illness: This is Dr. Domingo dictating a consult on this patient The patient was interviewed and examined IMPRESSION / ASSESSMENT: Acute ST elevation [place], inferior wall Pain began about 2 hours back Current smoker 9 history of coronary stenting 2 years back in setting of an acute [place] with exactly similar presentation PLAN: I asked the nurse to give patient an aspirin, atorvastatin 80 mg daily He had already received IV heparin Proceed with urgent coronary angiography and intervention, discussed with Dr. Ledezma Smoking cessation Add panel HPI Patient started experiencing discomfort in the mid and the right seventh chest of the cracked his neck about 2 hours back The pain reminded him of his acute [place] 2 years back He is discomfort in the front and the upper back and the neck and discomfort going down both his arms He is quite uncomfortable and lower pain Twelve-lead EKG showed ST elevation in the inferior leads as well as changes in the anterior leads. Q waves in the inferior leads He has a past history of an acute [place] and he says it is in the right side artery and he underwent coronary stenting He continues to smoke He is on aspirin atorvastatin and metoprolol ROS: No fever chills or rigors, no cough, phlegm or expectoration, no nausea, vomiting or diarrhea, no hematuria, dysuria, no musculoskeletal complaints, no strokes or seizures, no skin lesions. EXAMINATION: Pulse rate in the 70s afebrile 98.2F, blood pressure 121/80 mmHg Pulses are equal bilaterally No brachial femoral delay Heart sounds are distant Barrel chest Decreased breath sounds bilaterally REVIEW OF LABS, ECG & MEDICAL DATA White count 10.8 thousand, hemoglobin 15.4 Sodium 140, potassium 4.4, BUN 23 and creatinine 0.9 Past Medical History Past Medical History: COPD, Myocardial Infarction ([place]) History of Any Multi-Drug Resistant Organisms: None Reported Past Surgical History: Heart Catheterization With Stent, Orthopedic Surgery Additional Past Surgical History / Comment(s): rt ankle Past Anesthesia/Blood Transfusion Reactions: No Reported Reaction Past Psychological History: Depression Smoking Status: Current every day smoker Past Alcohol Use History: None Reported Past Drug Use History: Marijuana - Past Family History Father Family Medical History: CVA/TIA, Myocardial Infarction ([place]) Additional Family Medical History / Comment(s): Brain aneurysm Mother Family Medical History: Thyroid Disorder Medications and Allergies Home Medications Medication Instructions Recorded Confirmed Type Vitamin B Complex 1 tab PO DAILY 03/07/20 04/19/22 History Atorvastatin [Lipitor] 80 mg PO HS #30 tab 03/08/20 04/19/22 Rx Acetaminophen Tab [Tylenol Tab] 500 mg PO Q6HR PRN 04/19/22 04/19/22 History Metoprolol Tartrate [Lopressor] 12.5 mg PO BID 04/19/22 04/19/22 History Allergies Allergy/AdvReac Type Severity Reaction Status Date / Time venom-honey bee Allergy Unknown Verified 07/02/22 03:19 [bee venom (honey bee)] Physical Exam Vitals: Vital Signs Temp Pulse Pulse Resp BP Pulse Ox 07/02/22 04:00 68 18 121/80 100 07/02/22 03:50 66 56 H 121/81 100 07/02/22 03:47 68 07/02/22 03:46 67 13 121/81 100 07/02/22 03:19 98.2 F 75 16 114/77 98 Intake and Output 07/01/22 07/01/22 07/02/22 14:59 22:59 06:59 Other: Weight 84.822 kg Results 07/02/22 03:47 07/02/22 03:47 Cardiac Enzymes 07/02/22 Range/Units 03:47 AST 38 (17-59) U/L CBC 07/02/22 Range/Units 03:47 WBC 10.8 H (3.8-10.6) k/uL RBC 4.90 (4.30-5.90) m/uL Hgb 15.4 (13.0-17.5) gm/dL Hct 47.2 (39.0-53.0) % Plt Count 238 (150-450) k/uL Comprehensive Metabolic Panel 07/02/22 Range/Units 03:47 Sodium 140 (137-145) mmol/L Potassium 4.4 (3.5-5.1) mmol/L Chloride 105 (98-107) mmol/L Carbon Dioxide 25 (22-30) mmol/L BUN 23 H (9-20) mg/dL Creatinine 0.89 (0.66-1.25) mg/dL Glucose 129 H (74-99) mg/dL Calcium 9.5 (8.4-10.2) mg/dL AST 38 (17-59) U/L ALT 41 (4-49) U/L Alkaline Phosphatase 81 (38-126) U/L Total Protein 6.2 L (6.3-8.2) g/dL Albumin 4.0 (3.5-5.0) g/dL Current Medications Generic Name Dose Route Start Last Admin Trade Name Freq PRN Reason Stop Dose Admin Aspirin 325 mg 07/03/22 09:00 Aspirin 325 Mg Tab PO DAILY YESENIA Sodium Chloride 1,000 mls @ 20 mls/hr 07/02/22 03:31 07/02/22 03:59 Saline 0.9% IV 07/03/22 03:30 20 mls/hr .Q24H STA Administration Heparin Sodium/Sodium Chloride 250 mls @ 10.001 mls/hr 07/02/22 03:45 25,000 unit/ Sodium Chloride IV .Q24H [facility] Protocol 11.79 UNITS/KG/HR Metoprolol Tartrate 25 mg 07/02/22 09:00 Metoprolol Tartrate 25 Mg Tab PO BID YESENIA Nitroglycerin 0.4 mg 07/02/22 03:31 Nitroglycerin Sl Tabs 0.4 Mg Tab SUBLINGUAL Q5M PRN Chest Pain Intake and Output 07/01/22 07/01/22 07/02/22 14:59 22:59 06:59 Other: Weight 84.822 kg Patient Weight 07/02/22 06:59 Weight 84.822 kg 07/02/22 03:47 07/02/22 03:47
[2022-07-02] MEDS ORDERED: HEPARIN SODIUM 1,000 UN/ML (10ML VL) ONE (04:20)
[2022-07-02] MEDS ORDERED: IV FLUID CONTINUATION 1,000 ML IV ONE ×3 (04:20→04:35)
[2022-07-02] MEDS: fentaNYL (PF) 50 MCG/ML 2 ML AMP IV ONE ×2 (04:21→05:36)
[2022-07-02] MEDS ORDERED: fentaNYL (PF) 50 MCG/ML 2 ML AMP ONE (04:21)
[2022-07-02] MEDS ORDERED: LIDOCAINE 1% INJ 10MG/ML (30 ML VIAL-PF) SQ ONE (04:23)
[2022-07-02] MEDS: HEPARIN SODIUM 1,000 UN/ML (10ML VL) IV ONE ×2 (04:30→05:14)
[2022-07-02] MEDS: PHENYLEPHRINE-0.9% NACL SYG 1,000 MCG/10 ML SYRINGE IV ONE ×5 (04:35→05:50)
[2022-07-02] MEDS ORDERED: DOPamine DRIP 800 MG in DEXTROSE/WATER 1 250ML.BAG IV ONE (04:38)
[2022-07-02] MEDS ORDERED: ONDANSETRON 4 MG/2 ML VIAL ONE (04:47)
[2022-07-02] MEDS ORDERED: ONDANSETRON 4 MG/2 ML VIAL IVP ONE (04:50)
[2022-07-02] MEDS ORDERED: HYDROmorphone 0.5 MG/0.5 ML SYRINGE IVP ONE (05:15)
[2022-07-02] MEDS ORDERED: TICAGRELOR 90 MG TAB ONE (05:28)
[2022-07-02] MEDS ORDERED: TICAGRELOR 90 MG TAB PO ONE (05:29)
[2022-07-02] MEDS ORDERED: IOPAMIDOL-370 125ML BTL INJ ONE (05:31)
[2022-07-02] MEDS ORDERED: TIROFIBAN 12.5MG-250ML NS 250 ML IV ONE (05:44)
[2022-07-02] MEDS ORDERED: IOPAMIDOL-300 50ML BTL INJ ONE (06:05)
[2022-07-02] MEDS ORDERED: RX INFO: IV CONTRAST WAS GIVEN 1 EACH MISC MISCELLANE PRN (06:19)
[2022-07-02] MEDS ORDERED: ZOLPIDEM 5 MG TAB PO PRN (06:19)
[2022-07-02] MEDS ORDERED: MAG HYDROX/AL HYDROX/SIMETH 30 ML CUP PO PRN (06:19)
[2022-07-02] MEDS ORDERED: ATROPINE SULFATE 0.1 MG/ML 10ML SYRINGE IV PRN (06:19)
[2022-07-02] MEDS ORDERED: SODIUM CHLORIDE 0.9% 1,000 ML in EMPTY BAG 1 BAG IV SCH (06:30)
--- NOTE | 2022-07-02 06:30 | P.PCN ---
Date of Procedure: 07/02/22 Operative Findings: CARDIAC CATHETERIZATION AND PERCUTANEOUS CORONARY INTERVENTION PERFORMING PHYSICIAN: Allan Ledezma MD, [facility] PROCEDURE PERFORMED: 1. Selective right and left coronary angiogram 2. Left heart catheterization 3. Successful stenting of PDA of RCA using 2.75 x 15 mm Xience ANA which with an excellent angiographic results 4. Successful stenting of the distal RCA using a 3.0 x 33 mm which was postdilated using 3.75 mm balloon with an excellent angiographic results 5. Aspiration thrombectomy from the RCA 6. Intravascular ultrasound of the RCA 7. Selective right common femoral artery angiogram INDICATION: Acute inferior ST patient myocardial infarction COMPLICATION: None APPROACH: Right common femoral artery LEVEL OF SEDATION: Moderate with the sedation time off 114 minutes PROCEDURE DESCRIPTION: After obtaining an informed consent the patient was brought to the cardiac manager cardiac cath. The right common femoral artery was cannulated using micropuncture technique, the micropuncture wire passed easily then I placed 6-Frisian sheath. Selective right coronary angiogram was performed using JR4 diagnostic catheter. Subsequently I did intervene on the RCA. Then selective left coronary angiogram was performed using JL4 catheter. Left heart catheterization was performed using pigtail catheter. After that selective right common femoral artery was performed. The procedure was completed without any complications SELECTIVE CORONARY ANGIOGRAM: The right coronary artery: Large caliber vessel and a dominant vessel. The RCA is a stented in the midportion and the stent is patent. The distal RCA is occluded with a large thrombus burden extends to the PDA and PLV branches. Left main: Is angiographically normal. Bifurcates into an LCx and LAD. The left circumflex: Intermediate caliber vessel and nondominant vessel. The proximal LCx appears to have mild disease only. It gives rises into an OM branch which is a medium caliber vessel with proximal lesion appears to be in the range of 50-60%. The circumflex continue after that as a medium caliber vessel in the AV groove. The left anterior descending artery: The proximal LAD has a lesion appeared to be in the range of 60-70%. The LAD proximally gives rises into the first and second diagonal both appeared to be angiographically normal. The mid LAD appears to be angiographically normal and gives rise into a small diagonal as well. The LAD distally appears to be angiographically normal. HEMODYNAMICS: The LVEDP was about 20 mmHg was no significant gradient across aortic valve PCI OF THE RCA: Anticoagulation was initiated using heparin with continuous ACT monitoring throughout the procedure. After engaging the RCA using JR4 guide. I did wire the RCA using a run-through wire and the wire did go to the PLV branch of the RCA. I did balloon angioplasty of the RCA using 2.5 x 15 mm balloon. I was able to restore the flow after the first ballooning. Subsequently an angiogram was performed and showed that the PDA is a large caliber vessel and the lesion extends all the way to the proximal PDA of the RCA. For that reason I decided to leave the wire in the PLV branch and I wire the the PDA using another wire and that was a whisper wire. After that I did balloon angioplasty again and the PDA and distal RCA using the Steinmann bigger balloon which was 3.0 mm balloon and also I did balloon angioplasty of the PLV branch as well using 3.0 mm balloon. At that point attempting advancing the stent to distal RCA which was a 3.0 x 33 mm was unsuccessful because the stent will not make the turn from the proximal to the mid RCA where the old the stent was there. Attempting advancing the stent over 2 wires including a whisper wire and a run-through wire was unsuccessful. At that point I decided to balloon the old the stent itself which I did using 3.0 mm balloon. Attempting advancing the stent again was unsuccessful but finally was successful using adjunctive use of guide liner. I was able to advance a stent to distal RCA and proximal PDA. The stent was positioned under fluoroscopy guidance and deployed under its nominal pressure. Following angiogram showed that distal to the stent in the PDA there is another lesion appears to be in the range of 70-80% which I decided to stent again. At that point I was able to advance 2.75 x 15 mm stent where the stent was positioned under fluoroscopy guidance and deployed under fluoroscopy guidance. After that postdilatation was performed using 3.5 mm balloon. The following angiogram showed haziness in the distal RCA inside the stent. I decided to do and a vascular ultrasound but the catheter would not cross the mid RCA. I was able to have an idea about the size of the RCA which was about 4 mm. At that point I attempted advancing 4.0 mm balloon but the balloon would not cross the mid RCA where the old stent was. At that point I was able to advance 3.75 x 12 mm see my compliant balloon and I did again balloon angioplasty of the whole segment in the distal right coronary artery. I did also an angiogram which showed that the haziness still there in the distal RCA which represent a thrombus. I decided to do aspiration thrombectomy which I did and the following angiogram showed better angiographic results and the haziness in the distal RCA appeared to be better. At that point was GERMÁN-3 flow and the patient being asymptomatic I decided to stop. CONCLUSION: #1 acute total occlusion of the distal RCA with a large thrombus burden. I performed successful stenting of the PDA of RCA and distal RCA as well as #2 intermediate lesion involving the proximal LAD #3 elevated left-sided filling pressure POSTPROCEDURE MANAGEMENT: #1 dual antiplatelet therapy using aspirin and Brilinta for 12 month #2 aggressive cholesterol control #3 follow-up with the patient
[2022-07-02] MEDS ORDERED: NOREPINEPHRINE 4 MG in SODIUM CHLORIDE 0.9% 250 ML IV ONE ×4 (06:31)
[2022-07-02] MEDS ORDERED: IOPAMIDOL-370 100ML BTL INJ ONE (06:33)
[2022-07-02 06:49] LABS: Glucose,Whole Blood 122 mg/dL (70-110)
[2022-07-02 07:39] LABS: Mean Platelet Volume 7.9; Platelet Count 211 k/uL (150-450)
[2022-07-02] MEDS ORDERED: METOPROLOL TARTRATE 25 MG TAB PO SCH (09:00)
[2022-07-02] MEDS: TICAGRELOR 90 MG TAB PO SCH ×2 (10:05→21:04)
[2022-07-02] MEDS: ASPIRIN 81 MG PO SCH (10:05)
[2022-07-02] MEDS: METOPROLOL TARTRATE 12.5 MG TAB PO SCH ×2 (10:05→21:04)
[2022-07-02 10:43] LABS: HDL Cholesterol 32.3 mg/dL (40.00-60.00)
[2022-07-02 12:39] LABS: Chol/HDL Ratio 2.06 Ratio; LDL Cholesterol,Direct Reflex 31.1 mg/dL (0.00-129.00)
[2022-07-02 14:07] VITALS: BMI 29.0
--- NOTE | 2022-07-02 18:01 | CA ---
Transthoracic Echo Report Name: Jaylan Pennington Age: 57 Gender: M : 1965 Exam Date: 07/02/2022 08:01 Exam Location: [facility] Ht (in): 69 Wt (lb): 187 Ordering Physician: Allan Ledezma MD ([id number]) Attending/Referring Phys: Data Communications Technician Chanel Bullock, ROBINSON Procedure CPT: Indications: CP Cardiac Hx: Technical Quality: Fair Contrast 1: Total Dose (mL): Contrast 2: Total Dose (mL): MEASUREMENTS (Male / Female) Normal Values 2D ECHO LV Diastolic Diameter PLAX 4.7 cm 4.2 - 5.9 / 3.9 - 5.3 cm LV Systolic Diameter PLAX 3.5 cm IVS Diastolic Thickness 1.4 cm 0.6 - 1.0 / 0.6 - 0.9 cm LVPW Diastolic Thickness 1.3 cm 0.6 - 1.0 / 0.6 - 0.9 cm LV Relative Wall Thickness 0.6 RV Internal Dim ED PLAX 3.4 cm M-MODE Aortic Root Diameter MM 3.4 cm AV Cusp Separation MM 2.7 cm DOPPLER AV Peak Velocity 108.5 cm/s AV Peak Gradient 4.7 mmHg MV Area PHT 2.1 cm??? Mitral E Point Velocity 60.4 cm/s Mitral A Point Velocity 80.5 cm/s Mitral E to A Ratio 0.8 MV Deceleration Time 369.0 ms MV E' Velocity 5.1 cm/s Mitral E to MV E' Ratio 11.8 FINDINGS Left Ventricle Left ventricular ejection fraction is estimated at 50-55 %. Left ventricular cavity size normal. Moderate concentric left ventricular hypertrophy. Right Ventricle Mild right ventricular dilatation. Unable to estimate the right ventricular systolic pressure. Right Atrium Normal right atrial size. Left Atrium Left atrium not well visualized. Mitral Valve Structurally normal mitral valve. No mitral stenosis, regurgitation or prolapse. Aortic Valve Trileaflet aortic valve. No aortic valve stenosis or regurgitation. Tricuspid Valve Structurally normal tricuspid valve. Pulmonic Valve Structurally normal pulmonic valve. Pericardium Normal pericardium. No pericardial effusion. Aorta Normal size aortic root and proximal ascending aorta. CONCLUSIONS Normal left ventricular dimension and systolic function was normal wall motion Previewed by: Dr. Allan Leedzma MD (Electronically Signed) Final Date: 02 July 2022 18:00
[2022-07-02] MEDS: HEPARIN SOD,PORK IN 0.45% NACL 25,000 UNIT in 0.45% NACL 1 250ML.BAG IV SCH (18:23)
[2022-07-02] MEDS ORDERED: TIROFIBAN 12.5MG-250ML NS 250 ML IV SCH (19:00)
[2022-07-02] MEDS ORDERED: IPRATROPIUM-ALBUTEROL 3 ML NEB INHALATION PRN (20:58)
--- NOTE | 2022-07-02 21:00 | P.HPIM ---
History of Present Illness H&P Date: 07/02/22 Chief Complaint: chest pain Pt. is a 57-year-old male with known history of COPD, coronary artery disease with history of stent placement, history of acute RI depression current everyday smoker and occasional marijuana use presents to ER with complaints of chest pain. Patient states that he has been having chest discomfort for the past 2 weeks and strange feeling in the chest. Patient has been having pounding heart like symptoms as well. Pain radiating to the back arms and neck. Restless with nausea and sweating. [place] dizzy as well. No complaints of cough or sputum production. No recent leg swelling. Patient states that he he did have COVID infection about 2 months ago and since then has been very weak and depressive. On admission EKG showed acute ST elevation of inferior leads. Patient was taken to cardiac catheterization and status post and placement. Laboratory data showed WBC 10.8 hemoglobin 15.4 and platelets 238 BUN 23 creatinine 0.89 potassium 4.4 and blood sugar 129 Troponin was 0.081 and 5.7 Review of Systems Constitutional: Patient denies any fever or chills . no Generalized weakness. Abdomen: Patient denied any nausea or vomiting or abd. pain Cardiovascular: Patient denies any chest pain or short of breath no pa lpitations. Respiratory: patient denied any cough . no sputum production. No shortness of breath Neurologic: Patient denied any numbness or tingling headache. Musculoskeletal: Patient denies any complaints of joint swelling or deformity. Skin: Negative Psychiatric: Negative Endocrine: No heat or cold intolerance. No recent weight gain. Genitourinary: No dysuria or hematuria. All other 14 point ROS negative except the above Past Medical History Past Medical History: COPD, Myocardial Infarction (RI) History of Any Multi-Drug Resistant Organisms: None Reported Past Surgical History: Heart Catheterization With Stent, Orthopedic Surgery Additional Past Surgical History / Comment(s): rt ankle Past Anesthesia/Blood Transfusion Reactions: No Reported Reaction Past Psychological History: Depression Smoking Status: Current every day smoker Past Alcohol Use History: None Reported Past Drug Use History: Marijuana - Past Family History Father Family Medical History: CVA/TIA, Myocardial Infarction (RI) Additional Family Medical History / Comment(s): Brain aneurysm Mother Family Medical History: Thyroid Disorder Medications and Allergies Home Medications Medication Instructions Recorded Confirmed Type Vitamin B Complex 1 tab PO DAILY 03/07/20 07/02/22 History Atorvastatin [Lipitor] 80 mg PO HS #30 tab 03/08/20 07/02/22 Rx Acetaminophen Tab [Tylenol Tab] 500 mg PO Q6HR PRN 04/19/22 07/02/22 History Metoprolol Tartrate [Lopressor] 12.5 mg PO BID 04/19/22 07/02/22 History Allergies Allergy/AdvReac Type Severity Reaction Status Date / Time venom-honey bee Allergy Unknown Verified 07/02/22 06:33 [bee venom (honey bee)] Physical Exam Vitals: Vital Signs Temp Pulse Pulse Resp BP BP Pulse Ox 07/02/22 07:10 97.7 F 82 22 91/67 93 L 07/02/22 07:05 97.7 F 87 16 96/63 93 L 07/02/22 07:00 64 19 95 07/02/22 04:00 68 18 121/80 100 07/02/22 03:50 66 19 121/81 100 07/02/22 03:47 68 07/02/22 03:46 67 17 121/81 100 07/02/22 03:19 98.2 F 75 16 114/77 98 Intake and Output 07/01/22 07/02/22 07/02/22 22:59 06:59 14:59 Intake Total 1220 135 Output Total 100 Balance 1220 35 Intake: IV 1220 75 Sodium Chloride 0.9% 1, 75 000 ml In Empty Bag 1 bag @ 75 mls/hr IV .[id number] YESENIA Rx#:[id number] Oral 60 Output: Urine 100 Other: # Voids 1 Weight 84.822 kg ABP, PAP, CO, CI - Last 8 Hours Arterial Blood Pressure 118/64 Arterial Blood Pressure 123/66 PHYSICAL EXAMINATION: Patient is lying in the bed comfortably, no acute distress, awake alert and oriented.. HEENT: Normocephalic. Neck is supple. Pupils reactive. Nostrils clear. Oral cavity is moist. Neck reveals no JVD, carotid bruits, or thyromegaly. CHEST EXAMINATION: Trachea is central. Symmetrical expansion. Lung butts clear to auscultation and percussion. CARDIAC: Normal S1, S2 with no gallops. No murmurs ABDOMEN: Soft. Bowel sounds present. Nontender. No organomegaly. No abdominal bruits. Extremities: reveal no edema. No clubbing or cyanosis Neurologically awake, alert, oriented x3 with well-coordinated movements. No focal deficits noted Skin: No rash or skin lesions. Psychiatric: Coperative. Nonsuicidal, Musculoskeletal: No joint swelling or deformity. Normal range of motion. Results CBC & Chem 7: 07/02/22 07:17 07/02/22 03:47 Labs: Abnormal Lab Results - Last 24 Hours (Table) 07/02/22 07/02/22 07/02/22 Range/Units 03:40 03:47 03:47 WBC 10.8 H (3.8-10.6) k/uL BUN 23 H (9-20) mg/dL Glucose 129 H (74-99) mg/dL POC Glucose (mg/dL) (70-110) mg/dL Troponin I 0.081 H* (0.000-0.034) ng/mL Total Protein 6.2 L (6.3-8.2) g/dL 07/02/22 07/02/22 Range/Units 06:47 07:17 WBC (3.8-10.6) k/uL BUN (9-20) mg/dL Glucose (74-99) mg/dL POC Glucose (mg/dL) 122 H (70-110) mg/dL Troponin I 5.730 H* (0.000-0.034) ng/mL Total Protein (6.3-8.2) g/dL Thrombosis Risk Factor Assmnt - DVT/VTE Prophylaxis DVT/VTE Prophylaxis: Pharmacologic Prophylaxis ordered Assessment and Plan Assessment: Acute inferior wall RI status post stent placement Coronary disease with history of stent placement to RCA and history of RI COPD Ongoing nicotine addiction Depression History of marijuana use DVT prophylaxis Plan: Patient is being monitored in MICU. Current with telemetry monitoring. Continue with aspirin and statins and metoprolol and ticagrelor. Continue with duo nebs and follow-up closely. Cardiology is on board. Smoking cessation has been counseled extensively. Time with Patient: Greater than 30
[2022-07-02] MEDS: ATORVASTATIN 80 MG TAB PO SCH (21:04)
[2022-07-03] MEDS: HEPARIN SOD,PORK IN 0.45% NACL 25,000 UNIT in 0.45% NACL 1 250ML.BAG IV SCH (00:30)
[2022-07-03 04:51] LABS: Mean Platelet Volume 7.9; Platelet Count 186 k/uL (150-450)
[2022-07-03 05:09] LABS: African American GFR (CKD) >90 (>60 ml/min/1.73 sqM); Non-African American GFR(CKD) >90 (>60 ml/min/1.73 sqM)
[2022-07-03] MEDS: TICAGRELOR 90 MG TAB PO SCH ×2 (08:31→19:57)
[2022-07-03] MEDS: NICOTINE 14MG/24HR PATCH TRANSDERM SCH (08:31)
[2022-07-03] MEDS: ASPIRIN 81 MG PO SCH (08:31)
[2022-07-03] MEDS: METOPROLOL TARTRATE 12.5 MG TAB PO SCH ×2 (08:32→19:57)
[2022-07-03] MEDS ORDERED: ASPIRIN 325 MG TAB PO SCH (09:00)
[2022-07-03 11:44] LABS: Chol/HDL Ratio 2.29 Ratio; LDL Cholesterol,Calculated 23.1 mg/dL (0.0-131.0)
[2022-07-03] MEDS: ATORVASTATIN 80 MG TAB PO SCH (19:57)
--- NOTE | 2022-07-03 21:35 | PN ---
PROGRESS NOTE SUBJECTIVE: Jaylan is a 57-year-old gentleman, who is admitted to hospital with acute inferior wall myocardial infarction, underwent catheterization and angioplasty of the PDA and distal right coronary artery with aspiration thrombectomy. He was treated with Integrilin that has been stopped this morning. He is currently on aspirin, Lipitor, Lopressor, and Brilinta. PHYSICAL EXAMINATION: GENERAL: Comfortable at rest. VITAL SIGNS: Are stable. CHEST: Reveals good air entry bilaterally. HEART: Reveals first and second heart sounds. No gallop. No murmur. ABDOMEN: Soft, nontender. EXTREMITIES: Did not reveal any edema. Peripheral pulses are felt. Right groin is free of bleeding, bruit, hematoma. Foot pulses are intact. An echocardiogram shows normal LV systolic function. ASSESSMENT AND PLAN: Acute inferior wall myocardial infarction, status post catheterization and angioplasty. The patient is doing well. He will continue current medications and will be discharged home on Tuesday. MMODL / IJN: [id number] /
[2022-07-04] MEDS: ASPIRIN 81 MG PO SCH (05:14)
[2022-07-04 06:24] LABS: Basophils % (A) 0 %; Eosinophils # (A) 0.5 k/uL (0-0.7); Eosinophils % (A) 5 %; HCT 41.1 % (39.0-53.0); HGB 13.4 gm/dL (13.0-17.5); Lymphocytes # (A) 2.5 k/uL (1.0-4.8); Lymphocytes % (A) 26 %; MCH 31.6 pg (25.0-35.0); MCHC 32.7 g/dL (31.0-37.0); MCV 96.8 fL (80.0-100.0); Mean Platelet Volume 7.7; Monocytes # (A) 0.6 k/uL (0-1.0); Monocytes % (A) 7 %; Neutrophils # (A) 5.6 k/uL (1.3-7.7); Neutrophils % (A) 60 %; Platelet Count 189 k/uL (150-450); RBC 4.25 m/uL (4.30-5.90); RDW 13.3 % (11.5-15.5); WBC 9.4 k/uL (3.8-10.6)
[2022-07-04 06:39] LABS: African American GFR (CKD) >90 (>60 ml/min/1.73 sqM); Anion Gap 7 mmol/L; Blood Urea Nitrogen 18 mg/dL (9-20); Calcium 8.6 mg/dL (8.4-10.2); Carbon Dioxide 27 mmol/L (22-30); Chloride 107 mmol/L (98-107); Glucose 84 mg/dL (74-99); Non-African American GFR(CKD) >90 (>60 ml/min/1.73 sqM); Potassium 4.2 mmol/L (3.5-5.1); Sodium 141 mmol/L (137-145)
[2022-07-04] MEDS: METOPROLOL TARTRATE 12.5 MG TAB PO SCH (08:26)
[2022-07-04] MEDS: NICOTINE 14MG/24HR PATCH TRANSDERM SCH (08:27)
[2022-07-04] MEDS: TICAGRELOR 90 MG TAB PO SCH (08:27)
[2022-07-04 08:29] VITALS: PULSE 73; RESP 16; TEMP 98
--- NOTE | 2022-07-04 11:00 | P.PN ---
Subjective Progress Note Date: 07/04/22 Admitted to the hospital with an acute inferior wall myocardial infarction, he underwent catheterization and angioplasty of the PAD and distal RCA with aspiration thrombectomy. Patient is seen today resting comfortably in bed in no signs of acute distress. He denies chest pain or increased shortness of breath He remains sinus rhythm on telemetry. Patient is on aspirin, atorvastatin, Lopressor, and Brilinta. At this time blood pressure is only 92/57 will hold off on starting FEDERICA inhibitor Objective - Vital Signs Vital signs: Vital Signs Temp 98 F 07/04/22 08:00 Pulse 73 07/04/22 08:00 Resp 16 07/04/22 08:00 BP 92/57 07/04/22 08:00 Pulse Ox 98 07/04/22 08:00 FiO2 Intake & Output 07/03/22 07/04/22 07/04/22 18:59 06:59 18:59 Intake Total 120 358 Output Total 300 Balance -180 358 Intake: Oral 120 358 Output: Urine 300 Other: # Voids 1 ABP, PAP, CO, CI - Last Documented Arterial Blood Pressure 108/59 - Exam PHYSICAL EXAM: VITAL SIGNS: Reviewed. GENERAL: Well-developed in no acute distress. HEENT: Head is normocephalic. Pupils are equal, round. Sclerae anicteric. Mucous membranes of the mouth are moist. NECK: Supple. No JVD or thyromegaly RESPIRATORY: Respirations even and unlabored. Lungs diminished to auscultation bilaterally. CARDIO: Regular rate and rhythm. S1 and S2 heard. No murmur or gallops. EXTREMITIES: Normal range of motion. No clubbing or cyanosis. Peripheral pulses intact. Negative for bilateral lower extremity edema NEURO: Orientated to person, time, mood is appropriate Puncture site: Right groin is soft, nontender, no hematoma - Labs CBC & Chem 7: 07/04/22 05:16 07/04/22 05:16 Labs: Abnormal Lab Results - Last 24 Hours (Table) 07/03/22 07/04/22 Range/Units 04:18 05:16 RBC 4.25 L (4.30-5.90) m/uL HDL Cholesterol 28.40 L (40.00-60.00) mg/dL Assessment and Plan Assessment: Inferior wall myocardial infarction, status post catheterization and angioplasty Plan: Continue with all current cardiac medications Continue with telemetry monitoring Possible discharge in the next 24 hours Further recommendations based on clinical course The above impression and plan of care have been discussed and directed by the signing physician. Bia Jones, nurse practitioner, acting as scribe for signing physician.
--- NOTE | 2022-07-04 12:12 | P.PN ---
Subjective Progress Note Date: 07/03/22 Pt. is a 57-year-old male with known history of COPD, coronary artery disease with history of stent placement, history of acute DE depression current everyday smoker and occasional marijuana use presents to ER with complaints of chest pain. Patient states that he has been having chest discomfort for the past 2 weeks and strange feeling in the chest. Patient has been having pounding heart like symptoms as well. Pain radiating to the back arms and neck. Restless with nausea and sweating. [place] dizzy as well. No complaints of cough or sputum production. No recent leg swelling. Patient states that he he did have COVID infection about 2 months ago and since then has been very weak and depressive. On admission EKG showed acute ST elevation of inferior leads. Patient was taken to cardiac catheterization and status post and placement. Laboratory data showed WBC 10.8 hemoglobin 15.4 and platelets 238 BUN 23 creatinine 0.89 potassium 4.4 and blood sugar 129 Troponin was 0.081 and 5.7 07/03/2022 Patient Is Currently lying in the bed. Awake alert and oriented. No complaints of chest pressure of pain. No nausea vomiting abdominal pain or diarrhea. Feels better today.. No complaints of headache or dizziness or lightheadedness. Patient is hypotensive with blood pressure up for 90s. No nausea vomiting or abdominal pain or diarrhea. Patient is being transferred to general medical floor. Cardiology is on board. Laboratory data reviewed. Current medications reviewed. Objective - Vital Signs Vital signs: Vital Signs Temp 97.8 F 07/03/22 12:00 Pulse 72 07/03/22 12:00 Resp 18 07/03/22 12:00 BP 100/64 07/03/22 12:00 Pulse Ox 98 07/03/22 12:00 FiO2 Intake & Output 07/02/22 07/03/22 07/03/22 18:59 06:59 18:59 Intake Total 1810 815 Output Total 575 500 300 Balance 1235 315 -300 Weight 89 kg 89.4 kg Intake: IV 900 275 Sodium Chloride 0.9% 1, 900 275 000 ml In Empty Bag 1 bag @ 75 mls/hr IV .[id number] YESENIA Rx#:[id number] Oral 910 540 Output: Urine 575 500 300 Other: # Voids 1 ABP, PAP, CO, CI - Last Documented Arterial Blood Pressure 108/59 - Exam PHYSICAL EXAMINATION: Patient is lying in the bed comfortably, no acute distress, awake alert and oriented.. HEENT: Normocephalic. Neck is supple. Pupils reactive. Nostrils clear. Oral cavity is moist. Neck reveals no JVD, carotid bruits, or thyromegaly. CHEST EXAMINATION: Trachea is central. Symmetrical expansion. Lung butts clear to auscultation and percussion. CARDIAC: Normal S1, S2 with no gallops. No murmurs ABDOMEN: Soft. Bowel sounds normal. No organomegaly. No abdominal bruits. Extremities: reveal no edema. No clubbing or cyanosis Neurologically awake, alert, oriented x3 with well-coordinated movements. No focal deficits noted Skin: No rash or skin lesions. Psychiatric: Coperative. Nonsuicidal Musculoskeletal: No joint swelling or deformity. Normal range of motion. - Labs CBC & Chem 7: 07/04/22 05:16 07/04/22 05:16 Labs: Abnormal Lab Results - Last 24 Hours (Table) 07/03/22 Range/Units 04:18 HDL Cholesterol 28.40 L (40.00-60.00) mg/dL Assessment and Plan Assessment: Acute inferior wall DE status post stent placement Coronary disease with history of stent placement to RCA and history of DE COPD Ongoing nicotine addiction Depression History of marijuana use DVT prophylaxis Plan: Patient will be telemetry monitoring. Continue with aspirin and statins and metoprolol and ticagrelor. Continue with duo nebs and follow-up closely. Cardiology is on board. Patient is being transferred to medical floor. Follow-up CBC and BMP tomorrow. Smoking cessation has been counseled extensively. Time with Patient: Greater than 30
[2022-07-04 12:14] VITALS: BP 118/71
--- NOTE | 2022-07-11 20:57 | P.DS ---
Providers Date of admission: 07/02/22 03:31 Expected date of discharge: 07/04/22 Attending physician: Quique Montano Consults: 07/02/22 03:31 Consult Physician Urgent Consulting Provider: Tre Landeros Consult Reason/Comments: stemi Do you want consulting provider notified?: Yes 07/02/22 06:20 Consult Physician Routine Consulting Provider: [facility] Consult Reason/Comments: Post Interventional Patient Do you want consulting provider notified?: Already Contacted Primary care physician: Stated None Hospital Course: Discharge diagnosis Acute inferior wall VA status post stent placement Coronary disease with history of stent placement to RCA and history of VA COPD Ongoing nicotine addiction Depression History of marijuana use DVT prophylaxis Hospital course Pt. is a 57-year-old male with known history of COPD, coronary artery disease with history of stent placement, history of acute VA depression current everyday smoker and occasional marijuana use presents to ER with complaints of chest pain. Patient states that he has been having chest discomfort for the past 2 weeks and strange feeling in the chest. Patient has been having pounding heart like symptoms as well. Pain radiating to the back arms and neck. Restless with nausea and sweating. [place] dizzy as well. No complaints of cough or sputum production. No recent leg swelling. Patient states that he he did have COVID infection about 2 months ago and since then has been very weak and depressive. On admission EKG showed acute ST elevation of inferior leads. Patient was taken to cardiac catheterization and status post and placement. Laboratory data showed WBC 10.8 hemoglobin 15.4 and platelets 238 BUN 23 creatinine 0.89 potassium 4.4 and blood sugar 129 Troponin was 0.081 and 5.7 07/03/2022 Patient Is Currently lying in the bed. Awake alert and oriented. No complaints of chest pressure of pain. No nausea vomiting abdominal pain or diarrhea. Feels better today.. No complaints of headache or dizziness or lightheadedness. Patient is hypotensive with blood pressure up for 90s. No nausea vomiting or abdominal pain or diarrhea. Patient is being transferred to general medical floor. Cardiology is on board. Laboratory data reviewed. 07/04/2022 Patient is currently resting in bed. Awake alert Dia x3. S/p cardiac catheterization and stent placement. No complaints of chest pain or shortness discomfort. No shortness of breath. Remains in sinus rhythm. Blood pressure is stable and is on the lower side. FEDERICA inhibitor is on hold. Continue to follow progress. Continue dual antiplatelet agents and statins. Cleared from cardiology standpoint. Patient would like to be discharged home. PHYSICAL EXAMINATION: Patient is lying in the bed comfortably, no acute distress, awake alert and oriented.. HEENT: Normocephalic. Neck is supple. Pupils reactive. Nostrils clear. Oral cavity is moist. Neck reveals no JVD, carotid bruits, or thyromegaly. CHEST EXAMINATION: Trachea is central. Symmetrical expansion. Lung butts clear to auscultation and percussion. CARDIAC: Normal S1, S2 with no gallops. No murmurs ABDOMEN: Soft. Bowel sounds normal. No organomegaly. No abdominal bruits. Extremities: reveal no edema. No clubbing or cyanosis Neurologically awake, alert, oriented x3 with well-coordinated movements. No focal deficits noted Skin: No rash or skin lesions. Psychiatric: Coperative. Nonsuicidal Musculoskeletal: No joint swelling or deformity. Normal range of motion. Objective - Vital Signs Vital signs: Vital Signs Temp 98 F 07/04/22 08:00 Pulse 73 07/04/22 08:00 Resp 16 07/04/22 08:00 BP 92/57 07/04/22 08:00 Pulse Ox 98 07/04/22 08:00 FiO2 Intake & Output 07/03/22 07/04/22 07/04/22 18:59 06:59 18:59 Intake Total 120 358 Output Total 300 Balance -180 358 Intake: Oral 120 358 Output: Urine 300 Other: # Voids 1 ABP, PAP, CO, CI - Last Documented Arterial Blood Pressure 108/59 - Labs CBC & Chem 7: 07/04/22 05:16 07/04/22 05:16 Labs: Abnormal Lab Results - Last 24 Hours (Table) 07/04/22 Range/Units 05:16 RBC 4.25 L (4.30-5.90) m/uL Patient Condition at Discharge: Fair Plan - Discharge Summary Discharge Rx Participant: Yes New Discharge Prescriptions: New Aspirin 81 mg PO DAILY #30 tab Ticagrelor [Brilinta] 90 mg PO BID #60 tab Nicotine 14Mg/24Hr Patch [Habitrol] 1 patch TRANSDERM DAILY #7 patch Nitroglycerin Sl Tabs [Nitrostat] 0.4 mg SUBLINGUAL Q5M PRN #30 tab PRN Reason: Chest Pain Continue Vitamin B Complex 1 tab PO DAILY Atorvastatin [Lipitor] 80 mg PO HS #30 tab Metoprolol Tartrate [Lopressor] 12.5 mg PO BID #30 tab Discontinued Acetaminophen Tab [Tylenol Tab] 500 mg PO Q6HR PRN PRN Reason: Pain Or Fever > 100.5 Discharge Medication List Vitamin B Complex 1 tab PO DAILY 03/07/20 [History] Aspirin 81 mg PO DAILY #30 tab 07/04/22 [Rx] Atorvastatin [Lipitor] 80 mg PO HS #30 tab 07/04/22 [Rx] Metoprolol Tartrate [Lopressor] 12.5 mg PO BID #30 tab 07/04/22 [Rx] Nicotine 14Mg/24Hr Patch [Habitrol] 1 patch TRANSDERM DAILY #7 patch 07/04/22 [Rx] Nitroglycerin Sl Tabs [Nitrostat] 0.4 mg SUBLINGUAL Q5M PRN #30 tab 07/04/22 [Rx] Ticagrelor [Brilinta] 90 mg PO BID #60 tab 07/04/22 [Rx] Follow up Appointment(s)/Referral(s): Allan Ledezma MD [STAFF PHYSICIAN] - 1 Week (Please call office TUESDAY July 05, 2022 to obtain a follow up appointment.) None,Stated [Primary Care Provider] - 1-2 days (Please follow up with a Primary Care Provider to ensure continuity of care.) Patient Instructions/Handouts: Heart Attack (DC), Heart Healthy Diet (DC), Safe Use of Antiplatelet Medication (DC), Heart Catheterization (DC) Discharge Disposition: HOME SELF-CARE
== END 2022-07-04 15:27 | disposition home or self-care (01) | DRG 247 ==
LOC: EC 03:14 → 2SICU 03:31 → 3SCARD 07-03 13:53
PROVIDERS: ADMIT Hospitalist; ATTEND Hospitalist
PROC: B240ZZ3 Ultrasonography of Single Coronary Artery, Intravascular (ICD-10-PCS; principal; 2022-07-02 04:03)
PROC: 3E033XZ Introduction of Vasopressor into Peripheral Vein, Percutaneous Approach (ICD-10-PCS; principal; 2022-07-02 04:03)
PROC: B41F1ZZ Fluoroscopy of Right Lower Extremity Arteries using Low Osmolar Contrast (ICD-10-PCS; principal; 2022-07-02 04:03)
PROC: 02C03ZZ Extirpation of Matter from Coronary Artery, One Artery, Percutaneous Approach (ICD-10-PCS; principal; 2022-07-02 04:03)
PROC: 027135Z Dilation of Coronary Artery, Two Arteries with Two Drug-eluting Intraluminal Devices, Percutaneous Approach (ICD-10-PCS; principal; 2022-07-02 04:03)
PROC: B2111ZZ Fluoroscopy of Multiple Coronary Arteries using Low Osmolar Contrast (ICD-10-PCS; principal; 2022-07-02 04:03)
PROC: 4A023N7 Measurement of Cardiac Sampling and Pressure, Left Heart, Percutaneous Approach (ICD-10-PCS; principal; 2022-07-02 04:03)
DX: I21.19 ST elevation (STEMI) myocardial infarction involving other coronary artery of inferior wall (principal); F17.200 Nicotine dependence, unspecified, uncomplicated; F32.A Depression, unspecified; I25.10 Atherosclerotic heart disease of native coronary artery without angina pectoris; I95.9 Hypotension, unspecified; J44.9 Chronic obstructive pulmonary disease, unspecified; Z86.16 Personal history of COVID-19; Z71.6 Tobacco abuse counseling; I25.2 Old myocardial infarction; Z79.82 Long term (current) use of aspirin; Z79.899 Other long term (current) drug therapy; Z95.5 Presence of coronary angioplasty implant and graft; Z82.49 Family history of ischemic heart disease and other diseases of the circulatory system
CPT/HCPCS: 36415; 80048; 80053; 80061; 82565; 83690; 83721; 83735; 83880; 84443; 84484; 85025; 85049; 85610; 85730; 92973; 92978; 93005; 93306; 93458; 96374; 99291

== ENCOUNTER → 2023-05-09 | Outpatient (CLI) | payer MEDICARE, OTHER ==
--- NOTE | 2023-05-09 22:44 | CTL ---
EXAMINATION TYPE: CT Low Dose Lung DATE OF EXAM ORDERED: 05/09/2023 HISTORY: Nicotine dependence. Lung cancer screening CT DLP: [address] CTDI: 2.17 mGy Automated exposure control for dose reduction was used. SCREENING VISIT: Initial COMPARISON: Nicotine dependence TECHNIQUE: Low dose computed tomography scan was performed through the chest at 1 mm thick sections a nd reconstructed images in the coronal plane at [address] DIAGNOSTIC QUALITY: Limited, but interpretable FINDINGS: LUNG NODULES: Present, detailed below: 1. There is a 0.5 cm nodule in the posterior left mid lung. Series 4 image 109. 2. There is a 0.7 cm nodule within the right midlung. Series 4 image 168 Some streak opacity is at the right apex could be some atelectasis or minimal scarring. Additional s treaky opacity is in the superior segment left lower lobe. LUNGS: COPD: Severity: Mild Fibrosis: Severity: None Lymph nodes: None Other findings: None RIGHT PLEURAL SPACE: Effusion: None Calcification: None Thickening: None Pneumothorax: None LEFT PLEURAL SPACE: Effusion: None Calcification: None Thickening: None Pneumothorax: None HEART: Heart Size: Normal Coronary calcification: Mild Pericardial effusion: None OTHER FINDINGS: Upper abdomen: Punctate nonobstructing calcifications are within the left kidney. Bony thorax: Normal Supraclavicular region: Normal Other: Ascending thoracic aorta at the level the main pulmonary artery measures 4.0 cm. The main pul monary artery at the bifurcation measures 2.1 cm. IMPRESSION: 1. 0.7 cm nodule right lung. 2. Additional mild areas of linear stranding are nonspecific but could be related to atelectasis 3. Nonobstructing left renal stones FOLLOW UP CT CHEST RECOMMENDATION: PET/CT recommended for additional workup CT LUNG RAD: Lung-Rad 4A Suspicious.
== END | disposition home or self-care (01) ==
LOC: RADCTMAIN 10:41
PROVIDERS: ATTEND Internal Medicine
DX: Z12.2 Encounter for screening for malignant neoplasm of respiratory organs (principal); N20.0 Calculus of kidney; R91.1 Solitary pulmonary nodule; F17.210 Nicotine dependence, cigarettes, uncomplicated
CPT/HCPCS: 71271

== ENCOUNTER → 2023-09-23 | Outpatient (CLI) | payer MEDICARE, OTHER ==
--- NOTE | 2023-09-23 14:50 | CT ---
Exam: CT Chest without contrast. Date: 09/23/2023. Comparison: None History: Cough for 5 years. Technique: CT examination of the chest was performed without contrast. Coronal and sagittal reformats were performed. CT dose lowering techniques were used, to include: automated exposure control, adjus tment for patient size, and/or use of iterative reconstruction. FINDINGS: Mediastinum and [place]: There is no axillary, mediastinal or hilar lymphadenopathy. Pleural and Pericardial spaces: There are no pleural or pericardial effusions. Upper Abdomen: Left adrenal adenoma measures 1.6 cm in diameter. Millimeter nonobstructing stone in t he upper pole of the left kidney. Hyperdense lesion within the interpolar region of the right kidney measures 1.2 cm in diameter. Unchanged since the previous examination, however still remains indeterm inate. Cardiovascular: There is mild vascular calcification within the thoracic aorta without evidence of an eurysmal dilation. There are moderate coronary artery calcifications which are more severe in the rig ht coronary artery. Lung Parenchyma and Airways: The area of likely scarring in the right upper lobe is unchanged. Unchan ged nodule within the left lower lobe abutting the pleural surface measuring 5.6 mm on series 4 image 25. There is moderate to severe diffuse centrilobular emphysema. There are no new or enlarging nodul es. There is no focal area of consolidation. Bones: No fracture or aggressive osseous lesion. IMPRESSION: 1. Unchanged pulmonary nodules as above. No further follow-up would be required for nodules this size given the time of stability. 2. Moderate to severe emphysema. 3. Coronary artery calcifications.
== END | disposition home or self-care (01) ==
LOC: RADCTMAIN 13:38
PROVIDERS: ATTEND Internal Medicine
DX: J43.2 Centrilobular emphysema (principal); I25.10 Atherosclerotic heart disease of native coronary artery without angina pectoris; R91.8 Other nonspecific abnormal finding of lung field
CPT/HCPCS: 71250

== ENCOUNTER → 2024-05-16 | Outpatient (CLI) | payer MEDICARE, OTHER | END | disposition home or self-care (01) | LOC: LABWHC1 09:28 | PROVIDERS: ATTEND Internal Medicine | DX: Z00.00 Encounter for general adult medical examination without abnormal findings (principal); Z12.5 Encounter for screening for malignant neoplasm of prostate; I25.10 Atherosclerotic heart disease of native coronary artery without angina pectoris | CPT/HCPCS: 80061; 80053; 84443; 83735; 85025; 36415; G0103 ==

== ENCOUNTER 2025-01-14 14:57 | Emergency (ER) | payer MEDICARE, OTHER ==
[2025-01-14 15:07] VITALS: BP 112/73; PULSE 100; RESP 20; TEMP 97.3
[2025-01-14] MEDS: LIDOCAINE 1% INJ 10MG/ML (20 ML MDV) SQ ONE (15:42)
--- NOTE | 2025-01-14 16:08 | ED ---
Wound/Laceration HPI - General Chief Complaint: Wound/Laceration Stated Complaint: L Finger Laceration Time Seen by Provider: 01/14/25 16:08 Source: patient Mode of arrival: EMS Limitations: no limitations - History of Present Illness Initial Comments: 59-year-old male presented the ER via EMS for evaluation of a laceration. Patient states he was attempting to cut a hole into a plastic coffee lid with a razor blade when he accidentally cut his left third digit. He denies any limited range of motion or paresthesias. Tetanus status unknown. Patient denies any other injuries or complaints. - Related Data Home Medications Medication Instructions Recorded Confirmed Vitamin B Complex 1 tab PO DAILY 03/07/20 07/02/22 Previous Rx's Medication Instructions Recorded Aspirin 81 mg PO DAILY #30 tab 07/04/22 Atorvastatin [Lipitor] 80 mg PO HS #30 tab 07/04/22 Metoprolol Tartrate [Lopressor] 12.5 mg PO BID #30 tab 07/04/22 Nicotine 14Mg/24Hr Patch [Habitrol] 1 patch TRANSDERM DAILY #7 patch 07/04/22 Nitroglycerin Sl Tabs [Nitrostat] 0.4 mg SUBLINGUAL Q5M PRN #30 tab 07/04/22 Ticagrelor [Brilinta] 90 mg PO BID #60 tab 07/04/22 Allergies Allergy/AdvReac Type Severity Reaction Status Date / Time venom-honey bee Allergy Unknown Verified 07/02/22 06:33 [bee venom (honey bee)] Review of Systems ROS Statement: Those systems with pertinent positive or pertinent negative responses have been documented in the HPI. ROS Other: All systems not noted in ROS Statement are negative. Past Medical History Past Medical History: COPD, Hyperlipidemia, Hypertension, Myocardial Infarction ([place]) Last Myocardial Infarction Date:: 07/02/22 History of Any Multi-Drug Resistant Organisms: None Reported Past Surgical History: Heart Catheterization With Stent, Orthopedic Surgery Additional Past Surgical History / Comment(s): rt ankle Past Anesthesia/Blood Transfusion Reactions: No Reported Reaction Date of Last Stent Placement:: 07/02/22 Past Psychological History: Depression Smoking Status: Current every day smoker Past Alcohol Use History: None Reported Past Drug Use History: Marijuana - Past Family History Father Family Medical History: CVA/TIA, Myocardial Infarction ([place]) Additional Family Medical History / Comment(s): Brain aneurysm Mother Family Medical History: Thyroid Disorder General Exam Limitations: no limitations General appearance: alert, in no apparent distress Respiratory exam: Present: normal lung sounds bilaterally. Absent: respiratory distress, wheezes, rales, rhonchi, stridor Cardiovascular Exam: Present: regular rate, normal rhythm, normal heart sounds. Absent: systolic murmur, diastolic murmur, rubs, gallop, clicks Extremities exam: Present: normal inspection, full ROM, normal capillary refill, other (1 cm laceration to left third digit overlying DIP joint.). Absent: t enderness, pedal edema, joint swelling, calf tenderness Neurological exam: Present: alert, oriented X3, CN II-XII intact Skin exam: Present: warm, dry, intact, normal color. Absent: rash Course Vital Signs 01/14/25 15:04 Temperature 97.3 F L Pulse Rate 100 Respiratory 20 Rate Blood Pressure 112/73 O2 Sat by Pulse 99 Oximetry Procedures - Laceration Laceration #1 Indication: laceration Site: hand Size (cm): 1 Description: linear Anesthetic Used: lidocaine 1%, without epi Anesthesia Technique: nerve block Amount (mls): 5 Pre-repair: wound explored, irrigated extensively, deep structures intact Type of Sutures: nylon Size of Sutures: 5-0 Number of Sutures: 3 Technique: simple, interrupted Patient Tolerated Procedure: well Medical Decision Making - Medical Decision Making Was pt. sent in by a medical professional or institution ([facility], PIG CASTING MACHINE OPERATOR, urgent care, hospital, or [facility]...) When possible be specific @ -No Did you speak to anyone other than the patient for history (EMS, parent, family, police, friend...)? What history was obtained from this source @ -No Did you review nursing and triage notes (agree or disagree)? Why? @ -I reviewed and agree with nursing and triage notes Were old charts reviewed (outside hosp., previous admission, EMS record, old EKG, old radiological studies, urgent care reports/EKG's, [facility] records)? Report findings @ -No old charts were reviewed Differential Diagnosis (chest pain, altered mental status, abdominal pain women, abdominal pain men, vaginal bleeding, weakness, fever, dyspnea, syncope, headache, dizziness, GI bleed, back pain, seizure, CVA, palpatations, mental health, musculoskeletal)? @ -Laceration, abrasion, contusion, avulsion, foreign body this list is not meant to be all-inclusive EKG interpreted by me (3pts min.). @ -None done X-rays interpreted by me (1pt min.). @ -None done CT interpreted by me (1pt min.). @ -None done U/S interpreted by me (1pt. min.). @ -None done What testing was considered but not performed or refused? (CT, X-rays, U/S, labs)? Why? @ -Imaging considered but not performed as patient has full active range of motion and no concern of radiopaque foreign bodies. What meds were considered but not given or refused? Why? @ -Patient refused tetanus vaccination Did you discuss the management of the patient with other professionals (professionals i.e. , PA, PIG CASTING MACHINE OPERATOR, lab, RT, psych nurse, social services specialist, livestock trader, teacher, unarmed security officer, manager culinary)? Give summary @ -No Was smoking cessation discussed for >3mins.? @ -No Was critical care preformed (if so, how long)? @ -No Were there social determinants of health that impacted care today? How? (Homelessness, low income, unemployed, alcoholism, drug addiction, transportation, low edu. Level, literacy, decrease access to med. care, senior care, rehab)? @ -No Was there de-escalation of care discussed even if they declined (Discuss DNR or withdrawal of care, Hospice)? DNR status @ -No What co-morbidities impacted this encounter? (DM, HTN, Smoking, COPD, CAD, Cancer, CVA, ARF, Chemo, Hep., AIDS, mental health diagnosis, sleep apnea, morbid obesity)? @ -None Was patient admitted / discharged? Hospital course, mention meds given and route, prescriptions, significant lab abnormalities, going to OR and other pertinent info. @ -Discharge. 59-year-old male presented to ER via EMS for evaluation of a laceration. Exam remarkable for a 1 cm laceration to left third digit. Patient is neurovascularly intact with full active range of motion. Patient refused tetanus vaccination. Wound irrigated with iodine and sterile water prior to closure with 3 simple interrupted sutures, see note above. Wound care discussed. Advised suture removal in 10 to 14 days. Return parameters discussed. Patient discharged in stable condition with follow-up PCP. Patient verbally expressed understanding agree with care plan. Case discussed with ED attending, Dr. Cedeno. Undiagnosed new problem with uncertain prognosis? @ -No Drug Therapy requiring intensive monitoring for toxicity (Heparin, Nitro, Insulin, Cardizem)? @ -No Were any procedures done? @ -Yes Diagnosis/symptom? @ -Laceration Acute, or Chronic, or Acute on Chronic? @ -Acute Uncomplicated (without systemic symptoms) or Complicated (systemic symptoms)? @ -Uncomplicated Side effects of treatment? @ -No Exacerbation, Progression, or Severe Exacerbation? @ -No Poses a threat to life or bodily function? How? (Chest pain, [place], [place], pneumonia, PE, COPD, DKA, ARF, appy, cholecystitis, CVA, Diverticulitis, Homicidal, Suicidal, threat to staff... and all critical care pts) @ -No Disposition Clinical Impression: Laceration Disposition: HOME SELF-CARE Condition: Stable Instructions (If sedation given, give patient instructions): Care For Your Stitches (DC) Additional Instructions: Have sutures removed 10 to 14 days. Keep area clean and dry monitor for signs infection including surrounding redness, swelling or purulent drainage. Return to the ER for any new or worsening concerns Is patient prescribed a controlled substance at d/c from ED?: No Referrals: Winston Roberts DO [Primary Care Provider] - 1-2 days Time of Disposition: 16:08
== END 2025-01-14 16:22 | disposition home or self-care (01) ==
LOC: EC 14:57
DX: S61.213A Laceration without foreign body of left middle finger without damage to nail, initial encounter (principal); F17.200 Nicotine dependence, unspecified, uncomplicated; Z91.030 Bee allergy status; W26.8XXA Contact with other sharp object(s), not elsewhere classified, initial encounter
CPT/HCPCS: 99283; 12001; J2003